=== PATIENT | male | born 1975 ===

== ENCOUNTER 2021-06-16 17:19 | Inpatient (IN) ==
[2021-06-16] MEDS ORDERED: ACETAMINOPHEN 1,000 MG/100 ML VIAL IV STA (17:30)
[2021-06-16] MEDS ORDERED: SODIUM CHLORIDE 0.9% 1000ML 1,000 ML IV ONE (17:30)
--- NOTE | 2021-06-16 17:55 | XRay Report ---
XR chest 1V portable CLINICAL HISTORY: SEPSIS COMPARISON STUDY: No previous studies for comparison. FINDINGS: Lung volumes are normal. Lungs are clear. There is no pneumothorax or pleural effusion. Car diac size is normal. Mediastinal contours are normal. There is no evidence for pulmonary edema. IMPRESSION: No acute cardiopulmonary findings. ACT 112: Negative or not required by law. Electronically signed by: Uzair Beltran M.D. 06/16/2021 5:54 PM
[2021-06-16 18:00] LABS: Eosinophils # (auto) 0.01 K/uL (0-0.5); Eosinophils % (auto) 0.2 %; Hematocrit (blood only) 42.2 % (42-52); Hemoglobin 14.2 g/dL (14.0-18.0); Immature Granulocytes # (auto) 0.01 K/uL (0.00-0.02); Immature Granulocytes % (auto) 0.2 %; Lymphocytes # (auto) 0.46 K/uL (1.2-3.4); Lymphocytes % (auto) 8.3 %; Mean Corpuscular Hemoglobin 29.2 pg (25-34); Mean Corpuscular Hgb Conc 33.6 g/dL (32-36); Mean Corpuscular Volume 86.8 fL (80-100); Mean Platelet Volume 10.3 fL (7.4-10.4); Monocytes # (auto) 0.38 K/uL (0.11-0.59); Monocytes % (auto) 6.8 %; Neutrophils # (auto) 4.71 K/uL (1.4-6.5); Neutrophils % (auto) 84.5 %; Platelet Count 160 K/uL (130-400); RDW Coefficient of Variation 12.8 % (11.5-14.5); RDW Standard Deviation 40.9 fL (36.4-46.3); Red Blood Count 4.86 M/uL (4.7-6.1); White Blood Count 5.57 K/uL (4.8-10.8)
[2021-06-16 18:10] LABS: INR 1.1 (0.9-1.1); Partial Thromboplastin Time 27.3 Seconds (21.0-31.0); Prothrombin Time 11.1 Seconds (9.0-12.0)
--- NOTE | 2021-06-16 18:26 | Emergency Department Note ---
History of Present Illness General Chief complaint: Fever Stated complaint: [id number] 101 Time Seen by Provider: 06/16/21 17:30 History of Present Illness Provider complaint: Fever Onset (ago): day(s) 2 Associated symptoms: + fever/chills and + malaise; no confusion, no chest pain, no cough, no headaches, no nausea/vomiting, no rash, no shortness of breath or no weakness 45-year-old male presents emergency department for fever. Patient reports he started having fever and chills yesterday. He reports he has been having some sinus pressure. He reports his girlfriend is a nurse practitioner and started him on Augmentin and he took his first dose of Augmentin today. Patient has been vaccine against Covid 19. The patient is not vaccinated against the flu. Patient denies any headache, chest pain, difficulty breathing, cough, abdominal pain, nausea vomiting or diarrhea. No dysuria or hematuria. Patient does make note that a few days ago him and his girlfriend saw a tick in their bed but they did not see it on themselves when they checked her scans. Home Medications Medication Instructions Recorded Confirmed Type No Known Home Medications 06/16/21 06/16/21 History Allergies Allergy/AdvReac Type Severity Reaction Status Date / Time No Known Allergies Allergy Verified 06/16/21 18:12 Past Med/Surg History Medical History (Updated 06/16/21 @ 19:46 by Manish Oleary) No pertinent family history No pertinent past medical history Surgical History (Updated 06/16/21 @ 18:25 by Manish Oleary) No pertinent past surgical history Social History Smoking Status: Never smoker Preferred Language: Maltese Feels Safe at Home: Yes Review of Systems A total of 10 systems reviewed and were otherwise negative Physical Exam Vital Signs Vital Signs - 24 hr 06/16/21 17:23 06/16/21 17:59 06/16/21 18:01 Temperature 37.9 C H Temperature Source Temporal Artery Scan Pulse Rate 125 H 117 H Pulse Rate [Apical] Pulse Rate from SpO2 Sensor Respiratory Rate 18 27 H Respiratory Effort / Characteristics Blood Pressure 103/65 113/75 Blood Pressure [Left Arm] Blood Pressure Mean 77 87 Blood Pressure Mean [Left Arm] Pulse Oximetry 95 Oxygen Delivery Method Room Air Room Air Sepsis Recent Fever Within 48 Hours Yes Sepsis New/Unexplained Change in Mental Status N/A Sepsis Action Taken by Nursing No Action Required 06/16/21 18:24 06/16/21 18:25 06/16/21 18:30 Temperature 38.8 C H Temperature Source Oral Pulse Rate 114 H 118 H Pulse Rate [Apical] 114 H Pulse Rate from SpO2 Sensor 117 H Respiratory Rate 24 17 24 Respiratory Effort / Characteristics Non-Labored Spontaneous Blood Pressure 112/68 112/63 Blood Pressure [Left Arm] 112/68 Blood Pressure Mean 82 79 Blood Pressure Mean [Left Arm] 82 Pulse Oximetry 95 97 95 Oxygen Delivery Method Room Air Room Air Room Air Sepsis Recent Fever Within 48 Hours Sepsis New/Unexplained Change in Mental Status Sepsis Action Taken by Nursing 06/16/21 19:00 06/16/21 19:30 06/16/21 20:00 Temperature Temperature Source Pulse Rate 108 H Pulse Rate [Apical] Pulse Rate from SpO2 Sensor 109 H Respiratory Rate 18 19 26 H Respiratory Effort / Characteristics Non-Labored Non-Labored Non-Labored Blood Pressure 116/72 Blood Pressure [Left Arm] Blood Pressure Mean 86 Blood Pressure Mean [Left Arm] Pulse Oximetry 96 95 97 Oxygen Delivery Method Room Air Room Air Room Air Sepsis Recent Fever Within 48 Hours Sepsis New/Unexplained Change in Mental Status Sepsis Action Taken by Nursing Physical Exam GENERAL: He is oriented to person, place, and time. He appears well-developed and well-nourished. He does not appear distressed. HENT: Exam performed. - Head: Normocephalic and atraumatic. - Right Ear: External ear normal. No mastoid tenderness. - Left Ear: External ear normal. No mastoid tenderness. - Mouth/Throat: The oropharynx is clear and moist. No trismus in the jaw. No dental abscesses or uvula swelling. No oropharyngeal exudate or tonsillar abscesses. EYES: Conjunctivae and EOM are normal. Pupils are equal, round, and reactive to light. Right eye exhibits no discharge. Left eye exhibits no discharge. No scleral icterus. NECK: Normal range of motion. Neck supple. No JVD present. No spinous process tenderness present. No carotid bruit present. No rigidity. No tracheal deviation and normal range of motion present. No Brudzinski's sign and no Kernig's sign noted. CV: Tachycardic rate, regular rhythm, normal heart sounds and intact distal pulses. There is no peripheral edema. Palpable radial pulses bue. PULM/CHEST: Effort normal and breath sounds normal. No respiratory distress. No stridor. He has no wheezes. He has no rales. - Chest Wall: He exhibits no tenderness. ABD: The abdomen is soft. Bowel sounds are normal. He has no distension. No mass is present. There is no tenderness. There is no rebound, no guarding, no Vivas's sign and no tenderness at McBurney's point. Rovsig negative. MUSC/SKEL: Normal range of motion. There is no peripheral edema, tenderness or deformity. LYMPH: No cervical adenopathy. NEURO: He is alert and oriented to person, place, and time. He has normal strength. No cranial nerve deficit or sensory deficit. Coordination and gait normal. GCS eye subscore is 4. GCS verbal subscore is 5. GCS motor subscore is 6. Cerebellar tests wnl. SKIN: Skin is warm and dry. He is not diaphoretic. PSYCH: He has a normal mood and affect. Behavior is normal. Judgment and thought content normal. Course Course 1729: The patient was evaluated in room C5. A complete history and physical exam was performed Cardiac monitoring: An order was placed for continuous cardiac monitoring. The monitor shows a rate of 110 with sinus rhythm 1943: On reassessment the patient remains sinus tachycardia. He is in no acute distress. No focal neurological deficits. No meningeal signs. No pain on palpation of the abdomen. Patient is tolerating p.o. and drinking fluids in no acute distress. Labs are within normal limits with the exception of a potassium of 3.68. EKG is within normal limits. Patient denies chest pain or difficulty breathing at this time. CTA of the chest was negative for PE. It is thought that the patient might be suffering from myocarditis given his elevated troponin, fever, and tachycardia. [facility] to [facility] the patient. Administered Medications Discontinued Medications Acetaminophen (Ofirmev) 1,000 mg in 100 mls @ 400 mls/hr IV NOW STA Stop: 06/16/21 17:44 Last Infusion: 06/16/21 18:06 Dose: 0 mls/hr Documented by: [id number] Admin: 06/16/21 17:51 Dose: 400 mls/hr Documented by: [id number] Sodium Chloride (Nss 1000ml) 1,000 mls @ 999 mls/hr IV .Q1H1M ONE Stop: 06/16/21 18:30 Last Infusion: 06/16/21 18:33 Dose: 0 mls/hr Documented by: [id number] Admin: 06/16/21 17:51 Dose: 999 mls/hr Documented by: [id number] Ioversol (Optiray 320 125ml) 119 ml IV ONCE ONE Stop: 06/16/21 19:02 Last Admin: 06/16/21 19:01 Dose: 1 ml Documented by: [id number] Medical Decision Making Laboratory Data Result diagrams: 06/16/21 17:48 06/16/21 17:48 Lab Results 06/16/21 06/16/21 06/16/21 Range/Units 17:48 17:48 17:48 WBC 5.57 (4.8-10.8) K/uL RBC 4.86 (4.7-6.1) M/uL Hgb 14.2 (14.0-18.0) g/dL Hct 42.2 (42-52) % MCV 86.8 (80-100) fL MCH 29.2 (25-34) pg MCHC 33.6 (32-36) g/dL RDW Std Deviation 40.9 (36.4-46.3) fL RDW Coeff of Jennifer 12.8 (11.5-14.5) % Plt Count 160 (130-400) K/uL MPV 10.3 (7.4-10.4) fL Immature Gran % (Auto) 0.2 % Neut % (Auto) 84.5 % Lymph % (Auto) 8.3 % Maury % (Auto) 6.8 % Eos % (Auto) 0.2 % Baso % (Auto) 0.0 % Neut # (Auto) 4.71 (1.4-6.5) K/uL Lymph # (Auto) 0.46 L (1.2-3.4) K/uL Maury # (Auto) 0.38 (0.11-0.59) K/uL Eos # (Auto) 0.01 (0-0.5) K/uL Baso # (Auto) 0.00 (0-0.2) K/uL Immature Gran # (Auto) 0.01 (0.00-0.02) K/uL PT 11.1 (9.0-12.0) Seconds INR 1.1 (0.9-1.1) APTT 27.3 (21.0-31.0) Seconds PTT Ratio 1.0 Sodium 136 (136-145) mmol/L Potassium 3.8 (3.5-5.1) mmol/L Chloride 102 (98-107) mmol/L Carbon Dioxide 30 (21-32) mmol/L Anion Gap 4.0 (3-11) BUN 18 (7-18) mg/dl Creatinine 1.23 (0.6-1.4) mg/dl Est Cr Clr Drug Dosing 80.0 ml/min Est GFR ( Amer) 82.8 ml/min Est GFR (Non-Af Amer) 71.5 ml/min BUN/Creatinine Ratio 14.8 (10-20) Glucose 114 H (70-99) mg/dl Lactate (0.4-2.0) mmol/L Calcium 9.3 (8.5-10.1) mg/dl Magnesium 2.0 (1.8-2.4) mg/dl Total Bilirubin 0.6 (0.2-1) mg/dl AST 34 (15-37) U/L ALT 28 (12-78) U/L Alkaline Phosphatase 81 (45-117) U/L Troponin I 3.680 H* (0-0.045) ng/ml Total Protein 7.9 (6.4-8.2) gm/dl Albumin 3.8 (3.4-5.0) gm/dl Globulin 4.1 H (2.5-4.0) gm/dl Albumin/Globulin Ratio 0.9 (0.9-2) Procalcitonin (0-0.5) ng/ml Anaplasma Smear See Comment Lyme Disease IgG Ab (Negative) Lyme Disease IgM Ab (Negative) COVID-19 Eval Order SARS-CoV-2 (PCR) (Negative) Influ A Molecular Assay (Negative) Influ B Molecular Assay (Negative) 06/16/21 06/16/21 06/16/21 Range/Units 17:48 17:48 18:00 WBC (4.8-10.8) K/uL RBC (4.7-6.1) M/uL Hgb (14.0-18.0) g/dL Hct (42-52) % MCV (80-100) fL MCH (25-34) pg MCHC (32-36) g/dL RDW Std Deviation (36.4-46.3) fL RDW Coeff of Jennifer (11.5-14.5) % Plt Count (130-400) K/uL MPV (7.4-10.4) fL Immature Gran % (Auto) % Neut % (Auto) % Lymph % (Auto) % Maury % (Auto) % Eos % (Auto) % Baso % (Auto) % Neut # (Auto) (1.4-6.5) K/uL Lymph # (Auto) (1.2-3.4) K/uL Maury # (Auto) (0.11-0.59) K/uL Eos # (Auto) (0-0.5) K/uL Baso # (Auto) (0-0.2) K/uL Immature Gran # (Auto) (0.00-0.02) K/uL PT (9.0-12.0) Seconds INR (0.9-1.1) APTT (21.0-31.0) Seconds PTT Ratio Sodium (136-145) mmol/L Potassium (3.5-5.1) mmol/L Chloride (98-107) mmol/L Carbon Dioxide (21-32) mmol/L Anion Gap (3-11) BUN (7-18) mg/dl Creatinine (0.6-1.4) mg/dl Est Cr Clr Drug Dosing ml/min Est GFR ( Amer) ml/min Est GFR (Non-Af Amer) ml/min BUN/Creatinine Ratio (10-20) Glucose (70-99) mg/dl Lactate 0.9 (0.4-2.0) mmol/L Calcium (8.5-10.1) mg/dl Magnesium (1.8-2.4) mg/dl Total Bilirubin (0.2-1) mg/dl AST (15-37) U/L ALT (12-78) U/L Alkaline Phosphatase (45-117) U/L Troponin I (0-0.045) ng/ml Total Protein (6.4-8.2) gm/dl Albumin (3.4-5.0) gm/dl Globulin (2.5-4.0) gm/dl Albumin/Globulin Ratio (0.9-2) Procalcitonin 0.24 (0-0.5) ng/ml Anaplasma Smear Lyme Disease IgG Ab Negative (Negative) Lyme Disease IgM Ab Negative (Negative) COVID-19 Eval Order SARS-CoV-2 (PCR) (Negative) Influ A Molecular Assay Negative (Negative) Influ B Molecular Assay Negative (Negative) 06/16/21 06/16/21 Range/Units 18:00 18:00 WBC (4.8-10.8) K/uL RBC (4.7-6.1) M/uL Hgb (14.0-18.0) g/dL Hct (42-52) % MCV (80-100) fL MCH (25-34) pg MCHC (32-36) g/dL RDW Std Deviation (36.4-46.3) fL RDW Coeff of Jennifer (11.5-14.5) % Plt Count (130-400) K/uL MPV (7.4-10.4) fL Immature Gran % (Auto) % Neut % (Auto) % Lymph % (Auto) % Maury % (Auto) % Eos % (Auto) % Baso % (Auto) % Neut # (Auto) (1.4-6.5) K/uL Lymph # (Auto) (1.2-3.4) K/uL Maury # (Auto) (0.11-0.59) K/uL Eos # (Auto) (0-0.5) K/uL Baso # (Auto) (0-0.2) K/uL Immature Gran # (Auto) (0.00-0.02) K/uL PT (9.0-12.0) Seconds INR (0.9-1.1) APTT (21.0-31.0) Seconds PTT Ratio Sodium (136-145) mmol/L Potassium (3.5-5.1) mmol/L Chloride (98-107) mmol/L Carbon Dioxide (21-32) mmol/L Anion Gap (3-11) BUN (7-18) mg/dl Creatinine (0.6-1.4) mg/dl Est Cr Clr Drug Dosing ml/min Est GFR ( Amer) ml/min Est GFR (Non-Af Amer) ml/min BUN/Creatinine Ratio (10-20) Glucose (70-99) mg/dl Lactate (0.4-2.0) mmol/L Calcium (8.5-10.1) mg/dl Magnesium (1.8-2.4) mg/dl Total Bilirubin (0.2-1) mg/dl AST (15-37) U/L ALT (12-78) U/L Alkaline Phosphatase (45-117) U/L Troponin I (0-0.045) ng/ml Total Protein (6.4-8.2) gm/dl Albumin (3.4-5.0) gm/dl Globulin (2.5-4.0) gm/dl Albumin/Globulin Ratio (0.9-2) Procalcitonin (0-0.5) ng/ml Anaplasma Smear Lyme Disease IgG Ab (Negative) Lyme Disease IgM Ab (Negative) COVID-19 Eval Order Covid19 at [facility] SARS-CoV-2 (PCR) NEGATIVE (Negative) Influ A Molecular Assay (Negative) Influ B Molecular Assay (Negative) Imaging Data Radiologist's Impression: Chest X-Ray 06/16/21 17:30 XR chest 1V portable CLINICAL HISTORY: SEPSIS COMPARISON STUDY: No previous studies for comparison. FINDINGS: Lung volumes are normal. Lungs are clear. There is no pneumothorax or pleural effusion. Cardiac size is normal. Mediastinal contours are normal. There is no evidence for pulmonary edema. IMPRESSION: No acute cardiopulmonary findings. ACT 112: Negative or not required by law. Electronically signed by: Uzair Beltran M.D. 06/16/2021 5:54 PM Chest CTA 06/16/21 18:44 CT ANGIOGRAPHY OF THE CHEST, PULMONARY EMBOLUS PROTOCOL CLINICAL HISTORY: Fever. COMPARISON STUDY: Chest radiograph June 16, 2021. TECHNIQUE: Following IV administration of 119 mL of Optiray, helical axial images of the chest were obtained utilizing the pulmonary embolus protocol. Maximal intensity projections and sagittal and coronal reformats were viewed on an independent 3D workstation. IV contrast was administered without complication. Automated exposure control was utilized for the study. A dose lowering technique was utilized adhering to the principles of ALARA. CT DOSE: 314.29 mGy.cm FINDINGS: No pulmonary emboli are identified although the segmental and subsegmental pulmonary arteries are suboptimally assessed due to respiratory motion. There is no thoracic aortic dissection. There are prominent mediastinal and bilateral hilar lymph nodes. No pneumothorax or pleural effusion is noted. Bilateral lower lobe parenchymal opacities favor atelectasis. There is no consolidation to suggest pneumonia. Central airways are patent. No acute fracture or suspicious lesion is identified within visualized portions of the bony thorax. Mild splenomegaly is partially imaged on this exam. IMPRESSION: 1. No pulmonary emboli identified although segmental and subsegmental pulmonary arteries suboptimally assessed due to respiratory motion. 2. Bilateral lower lobe ground glass opacities suggestive of atelectasis. 3. Mild splenomegaly. 4. Prominent mediastinal and bilateral hilar lymph nodes. ACT 112: Negative or not required by law. Electronically signed by: Uzair Beltran M.D. 06/16/2021 7:15 PM ECG Data Indication: + other (fever) Rate (beats per minute): 108 Rhythm: + sinus tachycardia ECG Intervals/blocks: + Normal DC and + Normal QT-c ECG ST segments: + Normal ST segments Additional Comments: QRS 72 MDM Narrative 1730: The patient was evaluated in room C5. A complete history and physical exam was performed Cardiac monitoring: An order was placed for continuous cardiac monitoring. The monitor shows a rate of 110 with sinus rhythm 1943: On reassessment the patient remains sinus tachycardia. He is in no acute distress. No focal neurological deficits. No meningeal signs. No pain on palpation of the abdomen. Patient is tolerating p.o. and drinking fluids in no acute distress. Labs are within normal limits with the exception of a potassium of 3.68. EKG is within normal limits. Patient denies chest pain or difficulty breathing at this time. CTA of the chest was negative for PE. It is thought that the patient might be suffering from myocarditis given his elevated troponin, fever, and tachycardia. [facility] to evaluate the patient. Impression & Plan Myocarditis Discharge Plan Visit Data Chief Complaint: Fever Stated Complaint: [id number]-FEVER 101 ED Provider: Manish Oleary Discharge Problem: Myocarditis Patient Disposition: Admitted As Inpatient Forms Stand Alone Forms: [facility] Prescriptions Prescriptions: No Action No Known Home Medications RF: 0 Referrals Referrals: PCP,NO [Physician] - Discharge Problem: Myocarditis Qualifiers: Myocarditis type: unspecified Chronicity: acute Qualified Code(s): I40.9 - Acute myocarditis, unspecified
[2021-06-16 18:30] LABS: Albumin Level 3.8 gm/dl (3.4-5.0); BUN Creatinine Ratio 14.8 (10-20); Calcium 9.3 mg/dl (8.5-10.1); Est GFR (African American) 82.8 ml/min; Est GFR (Non-African American) 71.5 ml/min; Potassium 3.8 mmol/L (3.5-5.1)
[2021-06-16 18:34] LABS: Influenza A virus by PCR Negative (Negative); Influenza B virus by PCR Negative (Negative)
[2021-06-16 18:38] LABS: Procalcitonin 0.24 ng/ml (0-0.5)
[2021-06-16 18:42] LABS: Albumin Globulin Ratio 0.9 (0.9-2); Bilirubin,Total 0.6 mg/dl (0.2-1); Globulin 4.1 gm/dl (2.5-4.0); Total Protein 7.9 gm/dl (6.4-8.2); Troponin I 3.68 ng/ml (0-0.045)
[2021-06-16 18:44] LABS: Lyme Ab IgG w/WB Rflx Negative (Negative); Lyme Ab IgM w/WB Rflx Negative (Negative)
[2021-06-16] MEDS ORDERED: OPTIRAY 320 125ml IV ONE (19:01)
--- NOTE | 2021-06-16 19:16 | CT Scan Report ---
CT ANGIOGRAPHY OF THE CHEST, PULMONARY EMBOLUS PROTOCOL CLINICAL HISTORY: Fever. COMPARISON STUDY: Chest radiograph June 16, 2021. TECHNIQUE: Following IV administration of 119 mL of Optiray, helical axial images of the chest were o btained utilizing the pulmonary embolus protocol. Maximal intensity projections and sagittal and cor onal reformats were viewed on an independent 3D workstation. IV contrast was administered without co mplication. Automated exposure control was utilized for the study. A dose lowering technique was ut ilized adhering to the principles of ALARA. CT DOSE: 314.29 mGy.cm FINDINGS: No pulmonary emboli are identified although the segmental and subsegmental pulmonary arter ies are suboptimally assessed due to respiratory motion. There is no thoracic aortic dissection. Ther e are prominent mediastinal and bilateral hilar lymph nodes. No pneumothorax or pleural effusion is n oted. Bilateral lower lobe parenchymal opacities favor atelectasis. There is no consolidation to sugg est pneumonia. Central airways are patent. No acute fracture or suspicious lesion is identified withi n visualized portions of the bony thorax. Mild splenomegaly is partially imaged on this exam. IMPRESSION: 1. No pulmonary emboli identified although segmental and subsegmental pulmonary arteries suboptimally assessed due to respiratory motion. 2. Bilateral lower lobe ground glass opacities suggestive of atelectasis. 3. Mild splenomegaly. 4. Prominent mediastinal and bilateral hilar lymph nodes. ACT 112: Negative or not required by law. Electronically signed by: Uzair Beltran M.D. 06/16/2021 7:15 PM
[2021-06-16] MEDS ORDERED: ASPIRIN 81 MG CHEW PO STA (21:14)
[2021-06-16] MEDS ORDERED: NITROGLYCERIN SL 0.4 MG/TAB TAB SL PRN (21:21)
[2021-06-16] MEDS ORDERED: ONDANSETRON INJ 2 MG/ML 2 ML VIAL IV PRN (21:21)
[2021-06-16] MEDS ORDERED: Heparin IV Adult Wt-Based Standard *NO* Bolus Protocol IV ONE (21:30)
[2021-06-16] MEDS ORDERED: ENOXAPARIN INJ 40 MG/0.4 ML SYR SQ SCH (21:30)
[2021-06-16] MEDS: SODIUM CHLORIDE 0.9% 1000ML 1,000 ML IV SCH (22:02)
[2021-06-16] MEDS: HEPARIN SODIUM/DEXTROSE 25,000 UNITS/500 ML BAG IV SCH (22:04)
[2021-06-16] MEDS: cefTRIAXone SODIUM 2,000 MG in DEXTROSE 5% 50 ML IV SCH (22:10)
--- NOTE | 2021-06-16 22:19 | History and Physical Report ---
DATE OF ADMISSION: 06/16/2021 CHIEF COMPLAINT: Fever and fatigue. HISTORY OF PRESENT ILLNESS: This 45-year-old male with past medical history significant for history of blood per rectum, GERD, dermatitis, arthralgia of right knee, family history of cardiac disorder in mother, presents with fever and fatigue. The patient since yesterday afternoon is having fevers and feeling fatigued and weak and nauseous. That is the reason he came here. Denies any chest pain or shortness of breath. He has some mild headache, no neck pain. No blurred visions, no earache, no runny nose, no sore throat, no cough, no difficulty swallowing. Appetite is okay. No loss of sense of smell or taste. No abdominal pain, normal bowel and bladder movements. Denies any blood in the stools or black stools. No hematuria, no burning micturition. No rash. No swelling in the legs. He says he saw tick in his bed 3 days ago. He says he walks his dogs outside and he thinks that is how the ticks might have come inside house, and he and his significant other checked in his back and his arms and legs, they could not see any tick bites. He has some lesions in the back. They thought it could be some pimple . Otherwise, currently resting comfortably and hemodynamically stable. He has finished the second dose of COVID shot about a month ago and is not exposed to any COVID patients and did not travel outside. ALLERGIES: No known drug allergies. PAST MEDICAL HISTORY: As mentioned above. PAST SURGICAL HISTORY: Dental surgery. MEDICATIONS: Currently not on any medications. FAMILY HISTORY: Significant for mother had a stroke. Mother had a stent placed, heart disease at the age of 69. Paternal grandfather had heart attack. Maternal grandfather had cancer and maternal grandmother has diabetes. SOCIAL HISTORY: Currently living with his significant other. No smoking. Alcohol rarely. No drug use. REVIEW OF SYSTEMS: As per HPI. Rest of review of systems negative. PHYSICAL EXAMINATION: GENERAL: The patient is of moderate build, not in acute distress. VITAL SIGNS: T-max 38.8, pulse 108, blood pressure 118/72, oxygen 98% on room air. HEENT: Pupils equal, round and reactive to light. Oral mucosa moist. NECK: No JVD or neck masses. CARDIOVASCULAR: S1 and S2 heard. Regular rate and rhythm. No murmur, no gallop. RESPIRATORY SYSTEM: Normal AP diameter. No accessory muscle use. No wheezing, no crackles. ABDOMEN: Soft, bowel sounds present, nontender, no distention. CENTRAL NERVOUS SYSTEM: Cranial nerves II-XII grossly intact, nonfocal. EXTREMITIES: No edema, no erythema. LABORATORY DATA: WBC 5.5, hemoglobin 14.2, hematocrit 42.2, platelets 160. PT 11.1, INR 1.1, APTT 27.3. Sodium 136, potassium 3.8, chloride 102, bicarbonate 30, BUN 18, creatinine 1.2, serum glucose 114. Lactate 0.9, calcium 9.3, magnesium 2, total bilirubin 0.6, AST 34, ALT 28, alkaline phosphatase 81. Troponin I of 3.6. Procalcitonin 0.24. Lyme disease initial IgG, IgA, IgM are negative. Anaplasmosis smear negative. SARS-CoV-2 PCR negative. Influenza A and B PCR negative. IMAGING: Chest x-ray: No acute cardiopulmonary findings. CTA of the chest: No PE. Bilateral lower lobe ground-glass opacities suggestive of atelectasis, mild splenomegaly, prominent mediastinal and bilateral hilar lymph nodes. EKG: Sinus tachycardia with rate of 108, some nonspecific T-wave abnormalities. No previous ECGs available. ASSESSMENT AND PLAN: This 45-year-old male presents with fever and fatigue of unknown etiology. 1. Fever and fatigue, unclear etiology. Laboratories are okay except for lymphopenia and rest of the laboratories are all fine. The patient is SARS-CoV-2 PCR negative. The patient had a second dose of vaccination about 1 month ago. No exposure to COVID. CT of the chest unremarkable except for possible atelectasis.Possibility could be the Lyme disease or anaplasmosis as recently seeing ticks in his bed about 3 days ago, although his Lyme screen is negative, may take some time to show positive on the laboratories. We will empirically start on Rocephin and doxycycline, fluids and follow the response and monitor in the hospital. 2. Non-ST elevated myocardial infarction, troponin of 3.6. EKG with nonspecific changes,. Discussed with cardiology and appreciate inputs.. Will give aspirin and start on heparin. Will Check for CK and CK-MB , will get an echocardiogram in the a.m. We will keep him n.p.o. after midnight. Lipid profile in the a.m. Cardiology consult, closely monitor. We will also check a drug screen and ESR and CRP levels. 3. Deep venous thrombosis prophylaxis, on IV heparin. DISPOSITION: Closely monitor in the tele floor. Level 1 full code. Expect to discharge home and follow with family doctor. Job ID: [id number] DIMITRIOS
[2021-06-16 22:29] LABS: Appearance Urine Clear (Clear); Bilirubin Urine Negative (Negative); Blood Urine Negative (Negative); Color Urine Dark Yellow; Glucose Urine UA Negative (Negative); Ketones Urine 1+ (Negative); Leukocyte Esterase Urine Negative (Negative); Nitrite Urine Negative (Negative); Protein Urine Negative (Negative); Specific Gravity Urine > 1.045 (1.000-1.030); Urobilinogen Urine Positive (Negative)
[2021-06-16] MEDS: DOXYCYCLINE HYCLATE 100 MG in DEXTROSE 5% 100 ML IV SCH (22:47)
[2021-06-16] MEDS: ACETAMINOPHEN 325 MG TAB PO PRN (23:11)
[2021-06-16 23:14] LABS: Amphetamines+Metham, Urine Neg (Neg); Barbiturates, Urine Neg (Neg); Benzodiazepine, Urine Neg (Neg); Cocaine, Urine Neg (Neg); MDMA (Ecstacy), Urine Pos (Neg); Methadone, Urine Neg (Neg); Opiate, Urine Neg (Neg); Phencyclidine, Urine Neg (Neg)
[2021-06-16 23:44] LABS: C Reactive Protein 14.5 mg/dl (0-0.29); Creatine Kinase MB 2.7 ng/ml (0.5-3.6); Magnesium 1.8 mg/dl (1.8-2.4); Troponin I 3.2 ng/ml (0-0.045)
[2021-06-17 04:16] LABS: Eosinophils # (auto) 0.01 K/uL (0-0.5); Eosinophils % (auto) 0.2 %; Hematocrit (blood only) 40.9 % (42-52); Hemoglobin 13.6 g/dL (14.0-18.0); Immature Granulocytes # (auto) 0.01 K/uL (0.00-0.02); Immature Granulocytes % (auto) 0.2 %; Lymphocytes # (auto) 0.68 K/uL (1.2-3.4); Lymphocytes % (auto) 15.7 %; Mean Corpuscular Hemoglobin 29.3 pg (25-34); Mean Corpuscular Hgb Conc 33.3 g/dL (32-36); Mean Corpuscular Volume 88.1 fL (80-100); Mean Platelet Volume 10.4 fL (7.4-10.4); Monocytes # (auto) 0.39 K/uL (0.11-0.59); Neutrophils # (auto) 3.24 K/uL (1.4-6.5); Neutrophils % (auto) 74.9 %; Platelet Count 129 K/uL (130-400); RDW Standard Deviation 42.2 fL (36.4-46.3); Red Blood Count 4.64 M/uL (4.7-6.1); White Blood Count 4.33 K/uL (4.8-10.8)
[2021-06-17 04:32] LABS: BUN Creatinine Ratio 14.7 (10-20); Calcium 8.6 mg/dl (8.5-10.1); Creatinine Clr Calc Pharmacy 102.4 ml/min; Est GFR (African American) 111.8 ml/min; Est GFR (Non-African American) 96.4 ml/min; Potassium 3.7 mmol/L (3.5-5.1)
[2021-06-17 04:40] LABS: Partial Thromboplastin Time 51.9 Seconds (21.0-31.0)
[2021-06-17 04:41] LABS: Creatine Kinase MB 5.5 ng/ml (0.5-3.6); Troponin I 3.09 ng/ml (0-0.045)
[2021-06-17] MEDS ORDERED: POTASSIUM CHLORIDE CRTAB 20 MEQ TABCR PO STA (07:04)
[2021-06-17] MEDS: ASPIRIN 81 MG ECTAB PO SCH (08:05)
[2021-06-17] MEDS: DOXYCYCLINE HYCLATE 100 MG in DEXTROSE 5% 100 ML IV SCH ×2 (08:08→19:59)
[2021-06-17] MEDS: SODIUM CHLORIDE 0.9% 1000ML 1,000 ML IV SCH ×2 (09:29→17:54)
[2021-06-17 11:43] LABS: Thyroid Stimulating Hormone 2.03 uIu/ml (0.300-4.500); Troponin I 1.56 ng/ml (0-0.045)
--- NOTE | 2021-06-17 11:49 | Electrocardiogram Report ---
Test Reason : Blood Pressure : / mmHG Vent. Rate : 108 BPM Atrial Rate : 108 BPM P-R Int : 124 ms QRS Dur : 072 ms QT Int : 286 ms P-R-T Axes : 054 056 -06 degrees QTc Int : 383 ms Sinus tachycardia Nonspecific ST and T wave abnormality consider inferolateral ischemia Abnormal ECG No previous ECGs available Confirmed by Wesley Solomon ([id number]) on 06/17/2021 11:48:59 AM Referred By: REFERRED SELF Confirmed By:Wesley Solomon
--- NOTE | 2021-06-17 11:55 | Electrocardiogram Report ---
Test Reason : Blood Pressure : / mmHG Vent. Rate : 073 BPM Atrial Rate : 073 BPM P-R Int : 142 ms QRS Dur : 090 ms QT Int : 374 ms P-R-T Axes : 049 030 009 degrees QTc Int : 412 ms Normal sinus rhythm Nonspecific ST and T wave abnormality Abnormal ECG When compared with ECG of 16-JUN-2021 17:59, (unconfirmed) ST no longer depressed in Lateral leads Confirmed by Wesley Solomon ([id number]) on 06/17/2021 11:55:02 AM Referred By: REFERRED SELF Confirmed By:Wesley Solomon
--- NOTE | 2021-06-17 12:44 | Cardiology Consultation ---
Date of Consultation June 17, 2021 Assessment & Plan (1) Elevated troponin level: 44-year-old patient presenting with elevated troponin and clinical scenario suggestive of myocarditis, however, with ischemic ECG changes noted on admission and posterior wall motion abnormality on resting 2D transthoracic echocardiogram. His ejection fraction is preserved. No dysrhythmias on telemetry or evidence of decompensated heart failure. Discussed risk versus benefit of cardiac catheterization to define coronary anatomy and exclude presence of obstructive CAD. Patient agreeable. ECG this morning with improvement of ST depression. Fevers have subsided. Continue empiric medical therapy with aspirin, and intravenous heparin. Platelet count trended downward to 129, will repeat this afternoon and discontinue heparin if platelet count continues to drop. If coronary angiography demonstrates normal coronary anatomy, continue with supportive care for myocarditis and ultimately refer for cardiac MRI. Possible recent tick exposure, however, anaplasmosis and Lyme screen negative. May be too early for markers to return positive. Agree with empiric antibiotic therapy as patient has clinically improved. CBC unremarkable on admission except for lymphopenia. History of Present Illness Reason for Consultation: Elevated troponin Requesting Physician: Dr. Zapien Attending Physician: Cedric Chang MD History of Present Illness 45-year-old patient presented emergency department with persistent fevers for more than 48 hours. In the ER he was noted to have an elevated troponin of 3.68. Notes issues with nausea, acid reflux and heartburn over the preceding 48 hours. Denies chest pain, heaviness, or tightness. No shortness of breath. Denies any vomiting, diarrhea, or constipation. Fevers persisted despite treatment with ibuprofen and Tylenol. He was treated with Rocephin and doxycycline on admission. ECG on presentation with lateral ST depression. Preliminary review of bedside 2D transthoracic echocardiogram demonstrating a posterior wall motion abnormality, otherwise preserved LV systolic function, no significant valvular disease. Patient seen and examined the bedside. Feeling better this AM. No recurrent fevers since 3 AM. Received dose of antibiotic today. Tylenol administered overnight. Telemetry demonstrating sinus rhythm and sinus tachycardia. No dysrhythmias. No orthopnea, PND, or edema. Denies lightheadedness, dizziness, syncope, or near syncope. Aware of his elevated heart rate overnight however the symptoms have nearly resolved. Denies personal history of coronary disease, congestive heart failure, rheumatic fever as a child, or diabetes. He does not use any [id number] medications regularly. 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 Beliefs That Will Affect Care: None Current Living Situation: Significant Other Feels Safe at Home: Yes Safety Concerns: Feels Safe At This Time Assistive Devices: None Review of Systems Review of Systems: All systems reviewed & are unremarkable except as noted in Subjective Physical Exam Constitutional: well developed, well nourished and + ill appearing; no acute distress Respiratory: no respiratory distress and no labored breathing Auscultation: lungs clear to auscultation bilaterally; no crackles, no rales, no rhonchi and no wheezes Cardiovascular: Rate/Rhythm: regular rate and regular rhythm Heart Sounds: normal S1 and normal S2 Palpation: normal PMI Gastrointestinal (Abdomen): Inspection/Auscultation: normal bowel sounds; abdomen not distended Percussion/Palpation: abdomen soft; abdomen nontender, no guarding and abdomen not rigid Neurologic: CN's II-XI intact bilaterally and moves all extremities; no focal motor deficits Psychiatric: A+Ox3, euthymic affect Results & Data ([facility]) Vital Signs (Past 12 Hours) Vital Signs Temp Pulse Pulse Resp BP Pulse Ox 06/17/21 11:00 37.0 C 69 16 110/59 L 95 06/17/21 07:17 72 06/17/21 07:00 37.0 C 67 18 108/60 96 06/17/21 03:54 36.6 C 78 20 94/62 L 98
[2021-06-17] MEDS: METOPROLOL TARTRATE 25 MG TAB PO SCH ×2 (13:35→19:59)
--- NOTE | 2021-06-17 14:58 | Hospitalist Progress Note ---
Date of Service June 17, 2021 Assessment & Plan (1) Elevated troponin level: Plan: This 45-year-old male presents with fever and fatigue of unknown etiology. 1. Fever and fatigue, unclear etiology. Laboratories are unremarkable except for lymphopenia The patient is SARS-CoV-2 PCR negative. The patient had a second dose of vaccination about 1 month ago. No exposure to COVID. CT of the chest unremarkable except for possible atelectasis. Possibility could be the Lyme disease or anaplasmosis as recently seeing ticks in his bed about 3 days ago, although his Lyme screen is negative, may take some time to show positive on the laboratories. We will empirically start on Rocephin and doxycycline, fluids and follow the response and monitor in the hospital. Urine drug screen positive for ecstasy, likely from the use of Sudafed prior to coming to the hospital (for congestion) 2. NSTEMI, troponin of 3.6. EKG with ischemic changes on admission. Cardiology consulted and appreciate their inputs. Pt received aspirin and started on heparin on admission. Will Check for CK and CK-MB Echocardiogram obtained - EF 60-65%. There is a small sized posterior wall motion abnormality with hypokinesis of the segments. There is mild tricuspid regurg, there is no pericardial effusion. Given ischemic changes on ECG and posterior wall motion abnormality on resting echo - Plan for cardiac cath tomorrow (06/18) in the a.m. We will keep him n.p.o. after midnight. Lipid profile in the a.m. Cardiology consult, closely monitor. We will also check a drug screen and ESR and CRP levels. DVT prophylaxis, on IV heparin. DISPOSITION: Plan to DC home once medically stable and follow-up with PCP and cardiology. Full code Admission and Anticipated Discharge Date Admission Date: June 16, 2021 Subjective Patient seen in follow-up fevers, malaise, elevated troponin Currently laying in bed, in no acute distress, reports he is already feeling better Seen by cardiology, plan for cardiac cath tomorrow Patient's fianc at the bedside and updated Currently denies any chest pain, shortness of breath, no more fevers, no rashes no lower extremity edema Review of Systems Constitutional: no fever and no chills Respiratory: no cough and no dyspnea Cardiovascular: no chest pain and no palpitations Gastrointestinal: no abdominal pain, no nausea and no vomiting Physical Exam Physical Exam: GENERAL: The patient is of moderate build, not in acute dist ress. HEENT: NC/AT, EOMI, Pupils equal, round and reactive to light. Oral mucosa moist. NECK: No JVD or neck masses. CARDIOVASCULAR: S1 and S2 heard. Regular rate and rhythm. No murmur, no bryant p. RESPIRATORY SYSTEM: Normal AP diameter. No accessory muscle use. No wheezing, no crackles. ABDOMEN: Soft, bowel sounds present, nontender, no distention. NEURO: Alert and oriented x3, no facial asymmetry, speech fluent, moves extremities spontaneously EXTREMITIES: No edema, no erythema. Results & Data Results & Data ([facility]) Vital Signs (Past 12 Hours) Vital Signs Temp Pulse Pulse Resp BP Pulse Ox 06/17/21 13:35 99/65 L 06/17/21 11:00 37.0 C 69 16 110/59 L 95 06/17/21 07:17 72 06/17/21 07:00 37.0 C 67 18 108/60 96 06/17/21 03:54 36.6 C 78 20 94/62 L 98 Laboratory Results 06/17/21 06/17/21 06/17/21 Range/Units 11:04 04:01 04:01 WBC (4.8-10.8) K/uL RBC (4.7-6.1) M/uL Hgb (14.0-18.0) g/dL Hct (42-52) % MCV (80-100) fL MCH (25-34) pg MCHC (32-36) g/dL RDW Std Deviation (36.4-46.3) fL RDW Coeff of Jennifer (11.5-14.5) % Plt Count (130-400) K/uL MPV (7.4-10.4) fL Immature Gran % (Auto) % Neut % (Auto) % Lymph % (Auto) % Davis % (Auto) % Eos % (Auto) % Baso % (Auto) % Neut # (Auto) (1.4-6.5) K/uL Lymph # (Auto) (1.2-3.4) K/uL Davis # (Auto) (0.11-0.59) K/uL Eos # (Auto) (0-0.5) K/uL Baso # (Auto) (0-0.2) K/uL Immature Gran # (Auto) (0.00-0.02) K/uL ESR (0-15) mm/hr PT (9.0-12.0) Seconds INR (0.9-1.1) APTT 51.9 H* (21.0-31.0) Seconds PTT Ratio 2.0 Sodium 137 (136-145) mmol/L Potassium 3.7 (3.5-5.1) mmol/L Chloride 106 (98-107) mmol/L Carbon Dioxide 27 (21-32) mmol/L Anion Gap 4.0 (3-11) BUN 14 (7-18) mg/dl Creatinine 0.96 (0.6-1.4) mg/dl Est Cr Clr Drug Dosing 102.4 ml/min Est GFR ( Amer) 111.8 ml/min Est GFR (Non-Af Amer) 96.4 ml/min BUN/Creatinine Ratio 14.7 (10-20) Glucose 116 H (70-99) mg/dl Lactate (0.4-2.0) mmol/L Calcium 8.6 (8.5-10.1) mg/dl Magnesium (1.8-2.4) mg/dl Total Bilirubin (0.2-1) mg/dl AST (15-37) U/L ALT (12-78) U/L Alkaline Phosphatase (45-117) U/L Total Creatine Kinase 189 (39-308) U/L CK-MB (CK-2) 5.5 H (0.5-3.6) ng/ml CK/CKMB % Calc 2.9 (0-3.0) Troponin I 1.560 H* 3.090 H* (0-0.045) ng/ml C-Reactive Protein (0-0.29) mg/dl Total Protein (6.4-8.2) gm/dl Albumin (3.4-5.0) gm/dl Globulin (2.5-4.0) gm/dl Albumin/Globulin Ratio (0.9-2) Procalcitonin (0-0.5) ng/ml TSH 2.030 (0.300-4.500) uIu/ml Urine Color Urine Appearance (Clear) Urine pH (4.5-7.5) Ur Specific [place] (1.000-1.030) Urine Protein (Negative) Urine Glucose (UA) (Negative) Urine Ketones (Negative) Urine Blood (Negative) Urine Nitrite (Negative) Urine Bilirubin (Negative) Urine Urobilinogen (Negative) Ur Leukocyte Esterase (Negative) Urine Opiates Screen (Neg) Ur Methadone, Qual (Neg) Urine Barbiturates (Neg) Ur Phencyclidine (PCP) (Neg) U Amphetamin/Meth Scrn (Neg) Urine MDEA MDMA (Ecstasy) Screen (Neg) MDMA Urine MDMA U Benzodiazepines Scrn (Neg) Ur Cocaine Metabolite (Neg) U Marijuana (THC) Screen (Neg) Anaplasma Smear A. phagocytophilum DNA Lyme Disease IgG Ab (Negative) Lyme Disease IgM Ab (Negative) COVID-19 Eval Order SARS-CoV-2 (PCR) (Negative) Influ A Molecular Assay (Negative) Influ B Molecular Assay (Negative) 06/17/21 06/16/21 06/16/21 Range/Units 04:01 23:02 23:02 WBC 4.33 L (4.8-10.8) K/uL RBC 4.64 L (4.7-6.1) M/uL Hgb 13.6 L (14.0-18.0) g/dL Hct 40.9 L (42-52) % MCV 88.1 (80-100) fL MCH 29.3 (25-34) pg MCHC 33.3 (32-36) g/dL RDW Std Deviation 42.2 (36.4-46.3) fL RDW Coeff of Jennifer 13.0 (11.5-14.5) % Plt Count 129 L (130-400) K/uL MPV 10.4 (7.4-10.4) fL Immature Gran % (Auto) 0.2 % Neut % (Auto) 74.9 % Lymph % (Auto) 15.7 % Davis % (Auto) 9.0 % Eos % (Auto) 0.2 % Baso % (Auto) 0.0 % Neut # (Auto) 3.24 (1.4-6.5) K/uL Lymph # (Auto) 0.68 L (1.2-3.4) K/uL Davis # (Auto) 0.39 (0.11-0.59) K/uL Eos # (Auto) 0.01 (0-0.5) K/uL Baso # (Auto) 0.00 (0-0.2) K/uL Immature Gran # (Auto) 0.01 (0.00-0.02) K/uL ESR 37 H (0-15) mm/hr PT (9.0-12.0) Seconds INR (0.9-1.1) APTT (21.0-31.0) Seconds PTT Ratio Sodium (136-145) mmol/L Potassium (3.5-5.1) mmol/L Chloride (98-107) mmol/L Carbon Dioxide (21-32) mmol/L Anion Gap (3-11) BUN (7-18) mg/dl Creatinine (0.6-1.4) mg/dl Est Cr Clr Drug Dosing ml/min Est GFR ( Amer) ml/min Est GFR (Non-Af Amer) ml/min BUN/Creatinine Ratio (10-20) Glucose (70-99) mg/dl Lactate (0.4-2.0) mmol/L Calcium (8.5-10.1) mg/dl Magnesium 1.8 (1.8-2.4) mg/dl Total Bilirubin (0.2-1) mg/dl AST (15-37) U/L ALT (12-78) U/L Alkaline Phosphatase (45-117) U/L Total Creatine Kinase 185 (39-308) U/L CK-MB (CK-2) 2.7 (0.5-3.6) ng/ml CK/CKMB % Calc 1.5 (0-3.0) Troponin I 3.200 H* (0-0.045) ng/ml C-Reactive Protein 14.50 H (0-0.29) mg/dl Total Protein (6.4-8.2) gm/dl Albumin (3.4-5.0) gm/dl Globulin (2.5-4.0) gm/dl Albumin/Globulin Ratio (0.9-2) Procalcitonin (0-0.5) ng/ml TSH (0.300-4.500) uIu/ml Urine Color Urine Appearance (Clear) Urine pH (4.5-7.5) Ur Specific [place] (1.000-1.030) Urine Protein (Negative) Urine Glucose (UA) (Negative) Urine Ketones (Negative) Urine Blood (Negative) Urine Nitrite (Negative) Urine Bilirubin (Negative) Urine Urobilinogen (Negative) Ur Leukocyte Esterase (Negative) Urine Opiates Screen (Neg) Ur Methadone, Qual (Neg) Urine Barbiturates (Neg) Ur Phencyclidine (PCP) (Neg) U Amphetamin/Meth Scrn (Neg) Urine MDEA MDMA (Ecstasy) Screen (Neg) MDMA Urine MDMA U Benzodiazepines Scrn (Neg) Ur Cocaine Metabolite (Neg) U Marijuana (THC) Screen (Neg) Anaplasma Smear A. phagocytophilum DNA Lyme Disease IgG Ab (Negative) Lyme Disease IgM Ab (Negative) COVID-19 Eval Order SARS-CoV-2 (PCR) (Negative) Influ A Molecular Assay (Negative) Influ B Molecular Assay (Negative) 06/16/21 06/16/21 06/16/21 Range/Units 22:15 22:15 22:15 WBC (4.8-10.8) K/uL RBC (4.7-6.1) M/uL Hgb (14.0-18.0) g/dL Hct (42-52) % MCV (80-100) fL MCH (25-34) pg MCHC (32-36) g/dL RDW Std Deviation (36.4-46.3) fL RDW Coeff of Jennifer (11.5-14.5) % Plt Count (130-400) K/uL MPV (7.4-10.4) fL Immature Gran % (Auto) % Neut % (Auto) % Lymph % (Auto) % Davis % (Auto) % Eos % (Auto) % Baso % (Auto) % Neut # (Auto) (1.4-6.5) K/uL Lymph # (Auto) (1.2-3.4) K/uL Davis # (Auto) (0.11-0.59) K/uL Eos # (Auto) (0-0.5) K/uL Baso # (Auto) (0-0.2) K/uL Immature Gran # (Auto) (0.00-0.02) K/uL ESR (0-15) mm/hr PT (9.0-12.0) Seconds INR (0.9-1.1) APTT (21.0-31.0) Seconds PTT Ratio Sodium (136-145) mmol/L Potassium (3.5-5.1) mmol/L Chloride (98-107) mmol/L Carbon Dioxide (21-32) mmol/L Anion Gap (3-11) BUN (7-18) mg/dl Creatinine (0.6-1.4) mg/dl Est Cr Clr Drug Dosing ml/min Est GFR ( Amer) ml/min Est GFR (Non-Af Amer) ml/min BUN/Creatinine Ratio (10-20) Glucose (70-99) mg/dl Lactate (0.4-2.0) mmol/L Calcium (8.5-10.1) mg/dl Magnesium (1.8-2.4) mg/dl Total Bilirubin (0.2-1) mg/dl AST (15-37) U/L ALT (12-78) U/L Alkaline Phosphatase (45-117) U/L Total Creatine Kinase (39-308) U/L CK-MB (CK-2) (0.5-3.6) ng/ml CK/CKMB % Calc (0-3.0) Troponin I (0-0.045) ng/ml C-Reactive Protein (0-0.29) mg/dl Total Protein (6.4-8.2) gm/dl Albumin (3.4-5.0) gm/dl Globulin (2.5-4.0) gm/dl Albumin/Globulin Ratio (0.9-2) Procalcitonin (0-0.5) ng/ml TSH (0.300-4.500) uIu/ml Urine Color Dark Yellow Urine Appearance Clear (Clear) Urine pH 6.0 (4.5-7.5) Ur Specific [place] > 1.045 H (1.000-1.030) Urine Protein Negative (Negative) Urine Glucose (UA) Negative (Negative) Urine Ketones 1+ H (Negative) Urine Blood Negative (Negative) Urine Nitrite Negative (Negative) Urine Bilirubin Negative (Negative) Urine Urobilinogen Positive H (Negative) Ur Leukocyte Esterase Negative (Negative) Urine Opiates Screen Neg (Neg) Ur Methadone, Qual Neg (Neg) Urine Barbiturates Neg (Neg) Ur Phencyclidine (PCP) Neg (Neg) U Amphetamin/Meth Scrn Neg (Neg) Urine MDEA Pending MDMA (Ecstasy) Screen Pos H (Neg) MDMA Pending Urine MDMA Pending U Benzodiazepines Scrn Neg (Neg) Ur Cocaine Metabolite Neg (Neg) U Marijuana (THC) Screen Neg (Neg) Anaplasma Smear A. phagocytophilum DNA Lyme Disease IgG Ab (Negative) Lyme Disease IgM Ab (Negative) COVID-19 Eval Order SARS-CoV-2 (PCR) (Negative) Influ A Molecular Assay (Negative) Influ B Molecular Assay (Negative) 06/16/21 06/16/21 06/16/21 Range/Units 18:00 18:00 18:00 WBC (4.8-10.8) K/uL RBC (4.7-6.1) M/uL Hgb (14.0-18.0) g/dL Hct (42-52) % MCV (80-100) fL MCH (25-34) pg MCHC (32-36) g/dL RDW Std Deviation (36.4-46.3) fL RDW Coeff of Jennifer (11.5-14.5) % Plt Count (130-400) K/uL MPV (7.4-10.4) fL Immature Gran % (Auto) % Neut % (Auto) % Lymph % (Auto) % Davis % (Auto) % Eos % (Auto) % Baso % (Auto) % Neut # (Auto) (1.4-6.5) K/uL Lymph # (Auto) (1.2-3.4) K/uL Davis # (Auto) (0.11-0.59) K/uL Eos # (Auto) (0-0.5) K/uL Baso # (Auto) (0-0.2) K/uL Immature Gran # (Auto) (0.00-0.02) K/uL ESR (0-15) mm/hr PT (9.0-12.0) Seconds INR (0.9-1.1) APTT (21.0-31.0) Seconds PTT Ratio Sodium (136-145) mmol/L Potassium (3.5-5.1) mmol/L Chloride (98-107) mmol/L Carbon Dioxide (21-32) mmol/L Anion Gap (3-11) BUN (7-18) mg/dl Creatinine (0.6-1.4) mg/dl Est Cr Clr Drug Dosing ml/min Est GFR ( Amer) ml/min Est GFR (Non-Af Amer) ml/min BUN/Creatinine Ratio (10-20) Glucose (70-99) mg/dl Lactate (0.4-2.0) mmol/L Calcium (8.5-10.1) mg/dl Magnesium (1.8-2.4) mg/dl Total Bilirubin (0.2-1) mg/dl AST (15-37) U/L ALT (12-78) U/L Alkaline Phosphatase (45-117) U/L Total Creatine Kinase (39-308) U/L CK-MB (CK-2) (0.5-3.6) ng/ml CK/CKMB % Calc (0-3.0) Troponin I (0-0.045) ng/ml C-Reactive Protein (0-0.29) mg/dl Total Protein (6.4-8.2) gm/dl Albumin (3.4-5.0) gm/dl Globulin (2.5-4.0) gm/dl Albumin/Globulin Ratio (0.9-2) Procalcitonin (0-0.5) ng/ml TSH (0.300-4.500) uIu/ml Urine Color Urine Appearance (Clear) Urine pH (4.5-7.5) Ur Specific [place] (1.000-1.030) Urine Protein (Negative) Urine Glucose (UA) (Negative) Urine Ketones (Negative) Urine Blood (Negative) Urine Nitrite (Negative) Urine Bilirubin (Negative) Urine Urobilinogen (Negative) Ur Leukocyte Esterase (Negative) Urine Opiates Screen (Neg) Ur Methadone, Qual (Neg) Urine Barbiturates (Neg) Ur Phencyclidine (PCP) (Neg) U Amphetamin/Meth Scrn (Neg) Urine MDEA MDMA (Ecstasy) Screen (Neg) MDMA Urine MDMA U Benzodiazepines Scrn (Neg) Ur Cocaine Metabolite (Neg) U Marijuana (THC) Screen (Neg) Anaplasma Smear A. phagocytophilum DNA Lyme Disease IgG Ab (Negative) Lyme Disease IgM Ab (Negative) COVID-19 Eval Order Covid19 at [facility] SARS-CoV-2 (PCR) NEGATIVE (Negative) Influ A Molecular Assay Negative (Negative) Influ B Molecular Assay Negative (Negative) 06/16/21 06/16/21 06/16/21 Range/Units 17:48 17:48 17:48 WBC (4.8-10.8) K/uL RBC (4.7-6.1) M/uL Hgb (14.0-18.0) g/dL Hct (42-52) % MCV (80-100) fL MCH (25-34) pg MCHC (32-36) g/dL RDW Std Deviation (36.4-46.3) fL RDW Coeff of Jennifer (11.5-14.5) % Plt Count (130-400) K/uL MPV (7.4-10.4) fL Immature Gran % (Auto) % Neut % (Auto) % Lymph % (Auto) % Davis % (Auto) % Eos % (Auto) % Baso % (Auto) % Neut # (Auto) (1.4-6.5) K/uL Lymph # (Auto) (1.2-3.4) K/uL Davis # (Auto) (0.11-0.59) K/uL Eos # (Auto) (0-0.5) K/uL Baso # (Auto) (0-0.2) K/uL Immature Gran # (Auto) (0.00-0.02) K/uL ESR (0-15) mm/hr PT (9.0-12.0) Seconds INR (0.9-1.1) APTT (21.0-31.0) Seconds PTT Ratio Sodium (136-145) mmol/L Potassium (3.5-5.1) mmol/L Chloride (98-107) mmol/L Carbon Dioxide (21-32) mmol/L Anion Gap (3-11) BUN (7-18) mg/dl Creatinine (0.6-1.4) mg/dl Est Cr Clr Drug Dosing ml/min Est GFR ( Amer) ml/min Est GFR (Non-Af Amer) ml/min BUN/Creatinine Ratio (10-20) Glucose (70-99) mg/dl Lactate 0.9 (0.4-2.0) mmol/L Calcium (8.5-10.1) mg/dl Magnesium (1.8-2.4) mg/dl Total Bilirubin (0.2-1) mg/dl AST (15-37) U/L ALT (12-78) U/L Alkaline Phosphatase (45-117) U/L Total Creatine Kinase (39-308) U/L CK-MB (CK-2) (0.5-3.6) ng/ml CK/CKMB % Calc (0-3.0) Troponin I (0-0.045) ng/ml C-Reactive Protein (0-0.29) mg/dl Total Protein (6.4-8.2) gm/dl Albumin (3.4-5.0) gm/dl Globulin (2.5-4.0) gm/dl Albumin/Globulin Ratio (0.9-2) Procalcitonin 0.24 (0-0.5) ng/ml TSH (0.300-4.500) uIu/ml Urine Color Urine Appearance (Clear) Urine pH (4.5-7.5) Ur Specific [place] (1.000-1.030) Urine Protein (Negative) Urine Glucose (UA) (Negative) Urine Ketones (Negative) Urine Blood (Negative) Urine Nitrite (Negative) Urine Bilirubin (Negative) Urine Urobilinogen (Negative) Ur Leukocyte Esterase (Negative) Urine Opiates Screen (Neg) Ur Methadone, Qual (Neg) Urine Barbiturates (Neg) Ur Phencyclidine (PCP) (Neg) U Amphetamin/Meth Scrn (Neg) Urine MDEA MDMA (Ecstasy) Screen (Neg) MDMA Urine MDMA U Benzodiazepines Scrn (Neg) Ur Cocaine Metabolite (Neg) U Marijuana (THC) Screen (Neg) Anaplasma Smear A. phagocytophilum DNA Pending Lyme Disease IgG Ab Negative (Negative) Lyme Disease IgM Ab Negative (Negative) COVID-19 Eval Order SARS-CoV-2 (PCR) (Negative) Influ A Molecular Assay (Negative) Influ B Molecular Assay (Negative) 06/16/21 06/16/21 06/16/21 Range/Units 17:48 17:48 17:48 WBC 5.57 (4.8-10.8) K/uL RBC 4.86 (4.7-6.1) M/uL Hgb 14.2 (14.0-18.0) g/dL Hct 42.2 (42-52) % MCV 86.8 (80-100) fL MCH 29.2 (25-34) pg MCHC 33.6 (32-36) g/dL RDW Std Deviation 40.9 (36.4-46.3) fL RDW Coeff of Jennifer 12.8 (11.5-14.5) % Plt Count 160 (130-400) K/uL MPV 10.3 (7.4-10.4) fL Immature Gran % (Auto) 0.2 % Neut % (Auto) 84.5 % Lymph % (Auto) 8.3 % Davis % (Auto) 6.8 % Eos % (Auto) 0.2 % Baso % (Auto) 0.0 % Neut # (Auto) 4.71 (1.4-6.5) K/uL Lymph # (Auto) 0.46 L (1.2-3.4) K/uL Davis # (Auto) 0.38 (0.11-0.59) K/uL Eos # (Auto) 0.01 (0-0.5) K/uL Baso # (Auto) 0.00 (0-0.2) K/uL Immature Gran # (Auto) 0.01 (0.00-0.02) K/uL ESR (0-15) mm/hr PT 11.1 (9.0-12.0) Seconds INR 1.1 (0.9-1.1) APTT 27.3 (21.0-31.0) Seconds PTT Ratio 1.0 Sodium 136 (136-145) mmol/L Potassium 3.8 (3.5-5.1) mmol/L Chloride 102 (98-107) mmol/L Carbon Dioxide 30 (21-32) mmol/L Anion Gap 4.0 (3-11) BUN 18 (7-18) mg/dl Creatinine 1.23 (0.6-1.4) mg/dl Est Cr Clr Drug Dosing 80.0 ml/min Est GFR ( Amer) 82.8 ml/min Est GFR (Non-Af Amer) 71.5 ml/min BUN/Creatinine Ratio 14.8 (10-20) Glucose 114 H (70-99) mg/dl Lactate (0.4-2.0) mmol/L Calcium 9.3 (8.5-10.1) mg/dl Magnesium 2.0 (1.8-2.4) mg/dl Total Bilirubin 0.6 (0.2-1) mg/dl AST 34 (15-37) U/L ALT 28 (12-78) U/L Alkaline Phosphatase 81 (45-117) U/L Total Creatine Kinase (39-308) U/L CK-MB (CK-2) (0.5-3.6) ng/ml CK/CKMB % Calc (0-3.0) Troponin I 3.680 H* (0-0.045) ng/ml C-Reactive Protein (0-0.29) mg/dl Total Protein 7.9 (6.4-8.2) gm/dl Albumin 3.8 (3.4-5.0) gm/dl Globulin 4.1 H (2.5-4.0) gm/dl Albumin/Globulin Ratio 0.9 (0.9-2) Procalcitonin (0-0.5) ng/ml TSH (0.300-4.500) uIu/ml Urine Color Urine Appearance (Clear) Urine pH (4.5-7.5) Ur Specific [place] (1.000-1.030) Urine Protein (Negative) Urine Glucose (UA) (Negative) Urine Ketones (Negative) Urine Blood (Negative) Urine Nitrite (Negative) Urine Bilirubin (Negative) Urine Urobilinogen (Negative) Ur Leukocyte Esterase (Negative) Urine Opiates Screen (Neg) Ur Methadone, Qual (Neg) Urine Barbiturates (Neg) Ur Phencyclidine (PCP) (Neg) U Amphetamin/Meth Scrn (Neg) Urine MDEA MDMA (Ecstasy) Screen (Neg) MDMA Urine MDMA U Benzodiazepines Scrn (Neg) Ur Cocaine Metabolite (Neg) U Marijuana (THC) Screen (Neg) Anaplasma Smear See Comment A. phagocytophilum DNA Lyme Disease IgG Ab (Negative) Lyme Disease IgM Ab (Negative) COVID-19 Eval Order SARS-CoV-2 (PCR) (Negative) Influ A Molecular Assay (Negative) Influ B Molecular Assay (Negative) Medications Administered Current Inpatient Medications Acetaminophen (Acetaminophen 325 Mg Tab) 650 mg PO Q4H PRN PRN Reason: Pain or Fever Stop: 07/16/21 21:20 Last Admin: 06/16/21 23:11 Dose: 650 mg Documented by: Aspirin (Aspirin 81 Mg Ectab) 81 mg PO QAM [facility] Stop: 07/17/21 08:59 Last Admin: 06/17/21 08:05 Dose: 81 mg Documented by: Sodium Chloride (Nss 1000ml) 1,000 mls @ 100 mls/hr IV .Q10H [facility] Stop: 07/16/21 21:20 Last Admin: 06/17/21 09:29 Dose: 100 mls/hr Documented by: Ceftriaxone Sodium 2,000 mg/ (Dextrose) 70 mls @ 100 mls/hr IV Q24H [facility]; Protocol Stop: 06/26/21 21:29 Last Infusion: 06/17/21 00:39 Dose: Infused Documented by: Doxycycline Hyclate 100 mg/ (Dextrose) 110 mls @ 50 mls/hr IV Q12H [facility] Stop: 06/26/21 21:29 Last Infusion: 06/17/21 10:40 Dose: Infused Documented by: Heparin Sodium/Dextrose (Heparin Sodium/Dextrose) 25,000 units in 500 mls @ 27 mls/hr IV .[id number] [facility]; Protocol Stop: 07/16/21 21:44 Last Titration: 06/17/21 07:02 Dose: 1,350 units/hr, 27 mls/hr Documented by: Metoprolol Tartrate (Metoprolol Tartrate 25 Mg Tab) 12.5 mg PO BID [facility] Stop: 07/17/21 12:44 Last Admin: 06/17/21 13:35 Dose: 12.5 mg Documented by: Nitroglycerin (Nitroglycerin Sl 0.4 Mg/Tab Tab) 0.4 mg SL UD PRN PRN Reason: Chest Pain Stop: 07/16/21 21:20 Ondansetron HCl (Ondansetron Inj 2 Mg/Ml 2 Ml Vial) 4 mg IV Q6H PRN PRN Reason: Nausea Stop: 07/16/21 21:20
[2021-06-17] MEDS: HEPARIN SODIUM/DEXTROSE 25,000 UNITS/500 ML BAG IV SCH (15:51)
[2021-06-17 16:14] LABS: Basophils # (auto) 0.01 K/uL (0-0.2); Basophils % (auto) 0.3 %; Eosinophils # (auto) 0.04 K/uL (0-0.5); Eosinophils % (auto) 1.4 %; Hematocrit (blood only) 37.8 % (42-52); Hemoglobin 12.6 g/dL (14.0-18.0); Immature Granulocytes # (auto) 0.01 K/uL (0.00-0.02); Immature Granulocytes % (auto) 0.3 %; Lymphocytes # (auto) 0.74 K/uL (1.2-3.4); Lymphocytes % (auto) 25.5 %; Mean Corpuscular Hemoglobin 28.6 pg (25-34); Mean Corpuscular Hgb Conc 33.3 g/dL (32-36); Mean Corpuscular Volume 85.9 fL (80-100); Mean Platelet Volume 10.1 fL (7.4-10.4); Monocytes # (auto) 0.29 K/uL (0.11-0.59); Neutrophils # (auto) 1.81 K/uL (1.4-6.5); Neutrophils % (auto) 62.5 %; Platelet Count 114 K/uL (130-400); RDW Coefficient of Variation 12.9 % (11.5-14.5); RDW Standard Deviation 41.1 fL (36.4-46.3)
[2021-06-17] MEDS: cefTRIAXone SODIUM 2,000 MG in DEXTROSE 5% 50 ML IV SCH (19:59)
[2021-06-17] MEDS: ACETAMINOPHEN 325 MG TAB PO PRN (23:36)
[2021-06-18 06:04] LABS: Hematocrit (blood only) 36.8 % (42-52); Hemoglobin 12.1 g/dL (14.0-18.0); Mean Corpuscular Hemoglobin 28.6 pg (25-34); Mean Corpuscular Hgb Conc 32.9 g/dL (32-36); Mean Platelet Volume 10.7 fL (7.4-10.4); Platelet Count 126 K/uL (130-400); RDW Coefficient of Variation 12.9 % (11.5-14.5); RDW Standard Deviation 41.6 fL (36.4-46.3); Red Blood Count 4.23 M/uL (4.7-6.1); White Blood Count 2.59 K/uL (4.8-10.8)
[2021-06-18 06:18] LABS: Partial Thromboplastin Ratio 1.1; Partial Thromboplastin Time 29.9 Seconds (21.0-31.0)
[2021-06-18 06:39] LABS: BUN Creatinine Ratio 14.4 (10-20); Calcium 8.5 mg/dl (8.5-10.1); Creatinine Clr Calc Pharmacy 136.6 ml/min; Est GFR (African American) 132.4 ml/min; Est GFR (Non-African American) 114.3 ml/min; Magnesium 2.1 mg/dl (1.8-2.4); Potassium 3.7 mmol/L (3.5-5.1)
[2021-06-18 06:42] LABS: Phosphorus 3.7 mg/dl (2.5-4.9)
[2021-06-18] MEDS: DOXYCYCLINE HYCLATE 100 MG in DEXTROSE 5% 100 ML IV SCH ×2 (07:57→20:24)
--- NOTE | 2021-06-18 09:26 | Electrocardiogram Report ---
Test Reason : Blood Pressure : / mmHG Vent. Rate : 052 BPM Atrial Rate : 052 BPM P-R Int : 138 ms QRS Dur : 096 ms QT Int : 428 ms P-R-T Axes : 045 043 002 degrees QTc Int : 398 ms Sinus bradycardia with sinus arrhythmia Minor Anterior ST elevation, most consistent with repolarization variant Otherwise normal ECG When compared with ECG of 17-JUN-2021 04:13, Nonspecific T wave abnormality no longer evident in Anterior leads Confirmed by Curt Mi ([id number]) on 06/18/2021 9:26:06 AM Referred By: REFERRED SELF Confirmed By:Curt Mi
[2021-06-18] MEDS ORDERED: POTASSIUM CHLORIDE CRTAB 20 MEQ TABCR PO STA (09:33)
--- NOTE | 2021-06-18 09:33 | Hospitalist Progress Note ---
Date of Service June 18, 2021 Assessment & Plan (1) Elevated troponin level: Plan: This 45-year-old male presents with fever and fatigue of unknown etiology. 1. Fever and fatigue, unclear etiology. Laboratories are unremarkable except for lymphopenia The patient is SARS-CoV-2 PCR negative. The patient had a second dose of vaccination about 1 month ago. No exposure to COVID. CT of the chest unremarkable except for possible atelectasis. Possibility could be the Lyme disease or anaplasmosis as recently seeing ticks in his bed about 3 days ago, although his Lyme screen is negative, may take some time to show positive on the laboratories. Empirically started on Rocephin and doxycycline, fluids and follow the response and monitor in the hospital. Urine drug screen positive for ecstasy, likely from the use of Sudafed prior to coming to the hospital (for congestion) 2. NSTEMI, troponin of 3.6. EKG with ischemic changes on admission. Cardiology consulted and appreciate their inputs. Pt received aspirin and started on heparin on admission. Will Check for CK and CK-MB We will also check a drug screen and ESR and CRP levels. Lipid profile in the a.m. Cardiology consulted. Echocardiogram obtained - EF 60-65%. There is a small sized posterior wall motion abnormality with hypokinesis of the segments. There is mild tricuspid regurg, there is no pericardial effusion. Given ischemic changes on ECG and posterior wall motion abnormality on resting echo - Plan for cardiac cath tomorrow (06/19) n.p.o. after midnight. DVT prophylaxis, IV heparin now stopped. DISPOSITION: Plan to DC home once medically stable and follow-up with PCP and cardiology. Full code Admission and Anticipated Discharge Date Admission Date: June 16, 2021 Subjective Patient seen in follow-up fevers, malaise, elevated troponin Currently laying in bed, in no acute distress, reports he is already feeling much better Seen by cardiology, plan for cardiac cath tomorrow Patient's fianc at the bedside and updated Currently denies any chest pain, shortness of breath, no more fevers, no rashes no lower extremity edema Remains now afebrile Review of Systems Constitutional: no fever and no chills Respiratory: no cough and no dyspnea Cardiovascular: no chest pain and no palpitations Gastrointestinal: no abdominal pain, no nausea and no vomiting Physical Exam Physical Exam: GENERAL: The patient is of moderate build, not in acute distress. HEENT: NC/AT, EOMI, Pupils equal, round and reactive to light. Oral mucosa moist. NECK: No JVD or neck masses. CARDIOVASCULAR: S1 and S2 heard. Regular rate and rhythm. No murmur, no gallop. RESPIRATORY SYSTEM: Normal AP diameter. No accessory muscle use. No wheezing, no crackles. ABDOMEN: Soft, bowel sounds present, nontender, no distention. NEURO: Alert and oriented x3, no facial asymmetry, speech fluent, moves extremities spontaneously EXTREMITIES: No edema, no erythema. Results & Data Results & Data ([facility]) Vital Signs (Past 12 Hours) Vital Signs Temp Pulse Pulse Resp BP Pulse Ox 06/18/21 08:00 37.0 C 61 18 109/60 98 06/18/21 07:09 52 L 06/18/21 03:45 36.5 C 59 L 15 100/68 99 06/17/21 23:59 89 06/17/21 23:03 37.2 C 81 19 110/68 97 Laboratory Results 06/18/21 06/18/21 06/18/21 Range/Units 05:28 05:28 05:28 WBC 2.59 L (4.8-10.8) K/uL RBC 4.23 L (4.7-6.1) M/uL Hgb 12.1 L (14.0-18.0) g/dL Hct 36.8 L (42-52) % MCV 87.0 (80-100) fL MCH 28.6 (25-34) pg MCHC 32.9 (32-36) g/dL RDW Std Deviation 41.6 (36.4-46.3) fL RDW Coeff of Jennifer 12.9 (11.5-14.5) % Plt Count 126 L (130-400) K/uL MPV 10.7 H (7.4-10.4) fL Immature Gran % (Auto) % Neut % (Auto) % Lymph % (Auto) % Menard % (Auto) % Eos % (Auto) % Baso % (Auto) % Neut # (Auto) (1.4-6.5) K/uL Lymph # (Auto) (1.2-3.4) K/uL Menard # (Auto) (0.11-0.59) K/uL Eos # (Auto) (0-0.5) K/uL Baso # (Auto) (0-0.2) K/uL Immature Gran # (Auto) (0.00-0.02) K/uL APTT 29.9 (21.0-31.0) Seconds PTT Ratio 1.1 Sodium 138 (136-145) mmol/L Potassium 3.7 (3.5-5.1) mmol/L Chloride 107 (98-107) mmol/L Carbon Dioxide 28 (21-32) mmol/L Anion Gap 3.0 (3-11) BUN 10 (7-18) mg/dl Creatinine 0.72 (0.6-1.4) mg/dl Est Cr Clr Drug Dosing 136.6 ml/min Est GFR ( Amer) 132.4 ml/min Est GFR (Non-Af Amer) 114.3 ml/min BUN/Creatinine Ratio 14.4 (10-20) Glucose 99 (70-99) mg/dl Calcium 8.5 (8.5-10.1) mg/dl Phosphorus 3.7 (2.5-4.9) mg/dl Magnesium 2.1 (1.8-2.4) mg/dl Troponin I (0-0.045) ng/ml Triglycerides 200 H (0-150) mg/dl Cholesterol 150 (0-200) mg/dl LDL Cholesterol Direct mg/dl LDL Cholesterol, Calc 93 mg/dl VLDL Cholesterol, Calc 40 mg/dl HDL Cholesterol 17 mg/dl Cholesterol/HDL Ratio 9 TSH (0.300-4.500) uIu/ml 06/17/21 06/17/21 06/17/21 Range/Units 15:59 15:59 11:04 WBC 2.90 L (4.8-10.8) K/uL RBC 4.40 L (4.7-6.1) M/uL Hgb 12.6 L (14.0-18.0) g/dL Hct 37.8 L (42-52) % MCV 85.9 (80-100) fL MCH 28.6 (25-34) pg MCHC 33.3 (32-36) g/dL RDW Std Deviation 41.1 (36.4-46.3) fL RDW Coeff of Jennifer 12.9 (11.5-14.5) % Plt Count 114 L (130-400) K/uL MPV 10.1 (7.4-10.4) fL Immature Gran % (Auto) 0.3 % Neut % (Auto) 62.5 % Lymph % (Auto) 25.5 % Menard % (Auto) 10.0 % Eos % (Auto) 1.4 % Baso % (Auto) 0.3 % Neut # (Auto) 1.81 (1.4-6.5) K/uL Lymph # (Auto) 0.74 L (1.2-3.4) K/uL Menard # (Auto) 0.29 (0.11-0.59) K/uL Eos # (Auto) 0.04 (0-0.5) K/uL Baso # (Auto) 0.01 (0-0.2) K/uL Immature Gran # (Auto) 0.01 (0.00-0.02) K/uL APTT (21.0-31.0) Seconds PTT Ratio Sodium (136-145) mmol/L Potassium (3.5-5.1) mmol/L Chloride (98-107) mmol/L Carbon Dioxide (21-32) mmol/L Anion Gap (3-11) BUN (7-18) mg/dl Creatinine (0.6-1.4) mg/dl Est Cr Clr Drug Dosing ml/min Est GFR ( Amer) ml/min Est GFR (Non-Af Amer) ml/min BUN/Creatinine Ratio (10-20) Glucose (70-99) mg/dl Calcium (8.5-10.1) mg/dl Phosphorus (2.5-4.9) mg/dl Magnesium (1.8-2.4) mg/dl Troponin I 1.560 H* (0-0.045) ng/ml Triglycerides (0-150) mg/dl Cholesterol (0-200) mg/dl LDL Cholesterol Direct 88 mg/dl LDL Cholesterol, Calc mg/dl VLDL Cholesterol, Calc mg/dl HDL Cholesterol mg/dl Cholesterol/HDL Ratio TSH 2.030 (0.300-4.500) uIu/ml
[2021-06-18] MEDS: METOPROLOL TARTRATE 25 MG TAB PO SCH ×2 (09:41→20:33)
[2021-06-18] MEDS: ASPIRIN 81 MG ECTAB PO SCH (09:41)
--- NOTE | 2021-06-18 12:00 | Cardiology Progress Note ---
Date of Service June 18, 2021 Assessment & Plan (1) Elevated troponin level: Plan: Initial findings in the setting of an acute febrile illness with associated leukopenia and thrombocytopenia. EKG with minimal baseline abnormalities improved. Minimal risk factors for coronary artery disease but will need better define Plan proceed with diagnostic cardiac catheterization tomorrow morning with repeat laboratory studies prior Heparin held. Will follow platelet count and white cell count Admission and Anticipated Discharge Date Admission Date: June 16, 2021 Subjective Patient was seen and examined, chart, medications, telemetry reviewed. No chest pain or discomfort overnight no further fevers or chills. No dizziness or lightheadedness. No arrhythmias on telemetry. Review of Systems Review of Systems: All systems reviewed & are unremarkable except as noted in Subjective Physical Exam Constitutional: WD/WN, vitals as above Eyes: PERRL, conjunctivae normal, anicteric sclerae ENMT: external ear and nose normal, oropharynx normal Neck: trachea midline, no thyromegaly Respiratory: normal respiratory effort, lungs clear to auscultation Cardiovascular: Rate/Rhythm: regular rate and regular rhythm Heart Sounds: normal S1 and normal S2; no gallop, no murmur and no cardiac rub Palpation: normal PMI Vessels: normal carotid upstroke and radial pulses present; no JVD and no carotid bruit Extremities: no edema Gastrointestinal (Abdomen): normal bowel sounds, soft, nontender, no hepatosplenomegaly Musculoskeletal: no cyanosis or clubbing, extremities motor strength 5/5 Skin: no rashes, warm and dry Neurologic: PERRL, EOMI, accommodation nl, no face palsy, no dysarthria Psychiatric: A+Ox3, euthymic affect Results & Data ([facility]) Vital Signs (Past 12 Hours) Vital Signs Temp Pulse Pulse Resp BP Pulse Ox 06/18/21 08:00 37.0 C 61 18 109/60 98 06/18/21 07:09 52 L 06/18/21 03:45 36.5 C 59 L 15 100/68 99 06/17/21 23:59 89 Laboratory Results Laboratory Results - last 24 hr 06/17/21 06/17/21 06/18/21 15:59 15:59 05:28 WBC 2.90 L RBC 4.40 L Hgb 12.6 L Hct 37.8 L MCV 85.9 MCH 28.6 MCHC 33.3 RDW Std Deviation 41.1 RDW Coeff of Jennifer 12.9 Plt Count 114 L MPV 10.1 Immature Gran % (Auto) 0.3 Neut % (Auto) 62.5 Lymph % (Auto) 25.5 Titus % (Auto) 10.0 Eos % (Auto) 1.4 Baso % (Auto) 0.3 Neut # (Auto) 1.81 Lymph # (Auto) 0.74 L Titus # (Auto) 0.29 Eos # (Auto) 0.04 Baso # (Auto) 0.01 Immature Gran # (Auto) 0.01 APTT 29.9 PTT Ratio 1.1 Sodium Potassium Chloride Carbon Dioxide Anion Gap BUN Creatinine Est Cr Clr Drug Dosing Est GFR ( Amer) Est GFR (Non-Af Amer) BUN/Creatinine Ratio Glucose Calcium Phosphorus Magnesium Triglycerides Cholesterol LDL Cholesterol Direct 88 LDL Cholesterol, Calc VLDL Cholesterol, Calc HDL Cholesterol Cholesterol/HDL Ratio 06/18/21 06/18/21 05:28 05:28 WBC 2.59 L RBC 4.23 L Hgb 12.1 L Hct 36.8 L MCV 87.0 MCH 28.6 MCHC 32.9 RDW Std Deviation 41.6 RDW Coeff of Jennifer 12.9 Plt Count 126 L MPV 10.7 H Immature Gran % (Auto) Neut % (Auto) Lymph % (Auto) Titus % (Auto) Eos % (Auto) Baso % (Auto) Neut # (Auto) Lymph # (Auto) Titus # (Auto) Eos # (Auto) Baso # (Auto) Immature Gran # (Auto) APTT PTT Ratio Sodium 138 Potassium 3.7 Chloride 107 Carbon Dioxide 28 Anion Gap 3.0 BUN 10 Creatinine 0.72 Est Cr Clr Drug Dosing 136.6 Est GFR ( Amer) 132.4 Est GFR (Non-Af Amer) 114.3 BUN/Creatinine Ratio 14.4 Glucose 99 Calcium 8.5 Phosphorus 3.7 Magnesium 2.1 Triglycerides 200 H Cholesterol 150 LDL Cholesterol Direct LDL Cholesterol, Calc 93 VLDL Cholesterol, Calc 40 HDL Cholesterol 17 Cholesterol/HDL Ratio 9 ECG Additional Comments: 18-JUN-2021 04:24:58 [facility] ROUTINE RETRIEVAL Sinus bradycardia with sinus arrhythmia Minor Anterior ST elevation, most consistent with repolarization variant Otherwise normal ECG When compared with ECG of 17-JUN-2021 04:13, Nonspecific T wave abnormality no longer evident in Anterior leads
[2021-06-18] MEDS: cefTRIAXone SODIUM 2,000 MG in DEXTROSE 5% 50 ML IV SCH (20:24)
[2021-06-19 06:32] LABS: Hematocrit (blood only) 41.5 % (42-52); Hemoglobin 13.7 g/dL (14.0-18.0); Mean Corpuscular Hemoglobin 28.9 pg (25-34); Mean Corpuscular Volume 87.6 fL (80-100); Mean Platelet Volume 10.9 fL (7.4-10.4); Platelet Count 168 K/uL (130-400); RDW Standard Deviation 41.8 fL (36.4-46.3); Red Blood Count 4.74 M/uL (4.7-6.1); White Blood Count 3.48 K/uL (4.8-10.8)
[2021-06-19 07:01] LABS: Albumin Level 3.3 gm/dl (3.4-5.0); BUN Creatinine Ratio 15.9 (10-20); Calcium 8.8 mg/dl (8.5-10.1); Creatinine Clr Calc Pharmacy 124.5 ml/min; Est GFR (African American) 127.5 ml/min; Magnesium 2.1 mg/dl (1.8-2.4)
[2021-06-19 07:02] LABS: Albumin Globulin Ratio 0.8 (0.9-2); Bilirubin,Total 0.3 mg/dl (0.2-1); Globulin 3.9 gm/dl (2.5-4.0); Phosphorus 4.1 mg/dl (2.5-4.9); Total Protein 7.2 gm/dl (6.4-8.2)
--- NOTE | 2021-06-19 07:25 | Hospitalist Progress Note ---
Date of Service June 19, 2021 Assessment & Plan (1) Elevated troponin level: Plan: Possbile myocarditis This 45-year-old male presents with fever and fatigue of unknown etiology. 1. Fever and fatigue, unclear etiology. Laboratories are unremarkable except for lymphopenia The patient is SARS-CoV-2 PCR negative. The patient had a second dose of vaccination about 1 month ago. No exposure to COVID. CT of the chest unremarkable except for possible atelectasis. Possibility could be the Lyme disease or anaplasmosis as recently seeing ticks in his bed about 3 days ago, although his Lyme screen is negative, may take some time to show positive on the laboratories. Empirically started on Rocephin and doxycycline, fluids and follow the response and monitor in the hospital. Urine drug screen positive for ecstasy, likely from the use of Sudafed prior to coming to the hospital (for congestion) Patient afebrile in the hospital, will discharge on doxycycline with close follow-up with PCP. 2. NSTEMI, troponin of 3.6. EKG with ischemic changes on admission. Cardiology consulted and appreciate their inputs. Pt received aspirin and started on heparin on admission. Will Check for CK and CK-MB check a drug screen and ESR and CRP levels. Lipid profile in the a.m. Cardiology consulted. Echocardiogram obtained - EF 60-65%. There is a small sized posterior wall motion abnormality with hypokinesis of the segments. There is mild tricuspid regurg, there is no pericardial effusion. Given ischemic changes on ECG and posterior wall motion abnormality on resting echo - Plan for cardiac cath Pt s/p cardiac cath w/ Dr. Adams on 06/19/2021 - Cardiac catheterization demonstrates no obstructive coronary disease and preserved LV systolic function. Troponins may represent very mild myocarditis in association with acute febrile illness/inflammatory process. No signs of further cardiac deterioration by EKG and cardiac catheterization. Recommendations would continue aspirin and beta-roseann for 6 to 12 weeks. Follow-up cardiology 2 to 4 weeks DISPOSITION: Plan to DC home today and follow-up with PCP and cardiology. Full code Admission and Anticipated Discharge Date Admission Date: June 16, 2021 Subjective Patient seen in follow-up fevers, malaise, elevated troponin Currently laying in bed, in no acute distress, reports he is already feeling much better Seen by cardiology, now s/p cardiac cath earlier today Currently denies any chest pain, shortness of breath, no more fevers, no rashes no lower extremity edema Remains now afebrile Eager to be discharged home. Review of Systems Constitutional: no fever and no chills Respiratory: no cough and no dyspnea Cardiovascular: no chest pain and no palpitations Gastrointestinal: no abdominal pain, no nausea and no vomiting Physical Exam Physical Exam: GENERAL: The patient is of moderate build, not in acute distress. HEENT: NC/AT, EOMI, Pupils equal, round and reactive to light. Oral mucosa moist. NECK: No JVD or neck masses. CARDIOVASCULAR: S1 and S2 heard. Regular rate and rhythm. No murmur, no gallop. RESPIRATORY SYSTEM: Normal AP diameter. No accessory muscle use. No wheezing, no crackles. ABDOMEN: Soft, bowel sounds present, nontender, no distention. NEURO: Alert and oriented x3, no facial asymmetry, speech fluent, moves extremities spontaneously EXTREMITIES: No edema, no erythema. Results & Data Results & Data ([facility]) Vital Signs (Past 12 Hours) Vital Signs Temp Pulse Pulse Resp BP Pulse Ox 06/19/21 03:38 36.3 C L 56 L 16 105/66 100 06/18/21 23:58 72 06/18/21 23:37 36.7 C 67 18 117/79 99 06/18/21 19:32 36.6 C 66 18 111/66 97 Laboratory Results 06/19/21 06/19/21 Range/Units 05:54 05:54 WBC 3.48 L (4.8-10.8) K/uL RBC 4.74 (4.7-6.1) M/uL Hgb 13.7 L (14.0-18.0) g/dL Hct 41.5 L (42-52) % MCV 87.6 (80-100) fL MCH 28.9 (25-34) pg MCHC 33.0 (32-36) g/dL RDW Std Deviation 41.8 (36.4-46.3) fL RDW Coeff of Jennifer 13.0 (11.5-14.5) % Plt Count 168 (130-400) K/uL MPV 10.9 H (7.4-10.4) fL Sodium 139 (136-145) mmol/L Potassium 4.0 (3.5-5.1) mmol/L Chloride 108 H (98-107) mmol/L Carbon Dioxide 29 (21-32) mmol/L Anion Gap 2.0 L (3-11) BUN 13 (7-18) mg/dl Creatinine 0.79 (0.6-1.4) mg/dl Est Cr Clr Drug Dosing 124.5 ml/min Est GFR ( Amer) 127.5 ml/min Est GFR (Non-Af Amer) 110.0 ml/min BUN/Creatinine Ratio 15.9 (10-20) Glucose 95 (70-99) mg/dl Calcium 8.8 (8.5-10.1) mg/dl Phosphorus 4.1 (2.5-4.9) mg/dl Magnesium 2.1 (1.8-2.4) mg/dl Total Bilirubin 0.3 (0.2-1) mg/dl AST 29 (15-37) U/L ALT 39 (12-78) U/L Alkaline Phosphatase 74 (45-117) U/L Total Protein 7.2 (6.4-8.2) gm/dl Albumin 3.3 L (3.4-5.0) gm/dl Globulin 3.9 (2.5-4.0) gm/dl Albumin/Globulin Ratio 0.8 L (0.9-2) Medications Administered Current Inpatient Medications Acetaminophen (Acetaminophen 325 Mg Tab) 650 mg PO Q4H PRN PRN Reason: Pain or Fever Stop: 07/16/21 21:20 Last Admin: 06/17/21 23:36 Dose: 650 mg Documented by: Aspirin (Aspirin 81 Mg Ectab) 81 mg PO QAM [facility] Stop: 07/17/21 08:59 Last Admin: 06/18/21 09:41 Dose: 81 mg Documented by: Ceftriaxone Sodium 2,000 mg/ (Dextrose) 70 mls @ 100 mls/hr IV Q24H [facility]; Protocol Stop: 06/26/21 21:29 Last Infusion: 06/18/21 21:16 Dose: Infused Documented by: Doxycycline Hyclate 100 mg/ (Dextrose) 110 mls @ 50 mls/hr IV Q12H [facility] Stop: 06/26/21 21:29 Last Infusion: 06/18/21 22:42 Dose: Infused Documented by: Metoprolol Tartrate (Metoprolol Tartrate 25 Mg Tab) 12.5 mg PO BID [facility] Stop: 07/17/21 12:44 Last Admin: 06/18/21 20:33 Dose: 12.5 mg Documented by: Nitroglycerin (Nitroglycerin Sl 0.4 Mg/Tab Tab) 0.4 mg SL UD PRN PRN Reason: Chest Pain Stop: 07/16/21 21:20 Ondansetron HCl (Ondansetron Inj 2 Mg/Ml 2 Ml Vial) 4 mg IV Q6H PRN PRN Reason: Nausea Stop: 07/16/21 21:20
[2021-06-19] MEDS: METOPROLOL TARTRATE 25 MG TAB PO SCH (08:12)
[2021-06-19] MEDS: ASPIRIN 81 MG ECTAB PO SCH (08:13)
[2021-06-19] MEDS: DOXYCYCLINE HYCLATE 100 MG in DEXTROSE 5% 100 ML IV SCH (08:15)
--- NOTE | 2021-06-19 09:14 | Pre Anesthesia Assessment ---
Date of Service June 19, 2021 Pre Sedation Assessment Vital Signs Temp Pulse Pulse Resp BP Pulse Ox 06/19/21 09:32 65 20 115/81 100 06/19/21 07:27 36.7 C 66 20 114/73 100 06/19/21 03:38 36.3 C L 56 L 16 105/66 100 06/18/21 23:58 72 06/18/21 23:37 36.7 C 67 18 117/79 99 06/18/21 19:32 36.6 C 66 18 111/66 97 06/18/21 16:00 36.9 C 81 83 16 111/64 99 06/18/21 12:00 37.0 C 72 18 131/63 95 Cardiovascular RRR, no murmur, no edema no JVD Respiratory normal respiratory effort, lungs clear to auscultation Pre-Sedation Airway Assessment Smoking Status: Never smoker Hx Sleep Apnea: No Hx Difficult Intubation: No Short, Thick Neck: No Mallampati Class: II ASA: ASA3 NPO Status Date of Last Intake of Solid Food: 06/18/21 Procedure Planning Contraindications for Sedation: none Current Medications Reviewed: Yes Notes The planned sedation has been discussed with the patient. Informed Consent was obtained. I have identified the patient, determined the appropriateness of sedation and have assessed the patient immediately prior to the procedure. All medicine(s) and interventions are by my order.
[2021-06-19] MEDS ORDERED: MIDAZOLAM HCL 1 MG/ML 2ML VIAL ONE (09:59)
[2021-06-19] MEDS ORDERED: HEPARIN (PORCINE) 1000 UNIT/ML 10 ML (CATH LAB USE ONLY) ONE (09:59)
[2021-06-19] MEDS ORDERED: niCARdipine HCL INJ 2.5 MG/ML 10 ML AMP ONE (09:59)
[2021-06-19] MEDS ORDERED: fentaNYL citrate 100 MCG/2 ML VIAL ONE (10:00)
[2021-06-19] MEDS ORDERED: NITROGLYCERIN/D5W 100MCG/ML 20ML SYR ONE (10:00)
--- NOTE | 2021-06-19 10:40 | Post Anesthesia Assessment ---
Date of Service June 19, 2021 Post Sedation Assessment Vital Signs Temp Pulse Pulse Resp BP Pulse Ox 06/19/21 09:32 65 20 115/81 100 06/19/21 07:27 36.7 C 66 20 114/73 100 06/19/21 03:38 36.3 C L 56 L 16 105/66 100 06/18/21 23:58 72 06/18/21 23:37 36.7 C 67 18 117/79 99 06/18/21 19:32 36.6 C 66 18 111/66 97 06/18/21 16:00 36.9 C 81 83 16 111/64 99 06/18/21 12:00 37.0 C 72 18 131/63 95 Recovery Score Activity: Moves 4 extremities Respiration: Deep Breath/Cough Circulation: +/-20% PreAnes Value Consciousness: Fully Awake Oxygen Saturation: > 92% On Room Air Discharge Sedation Level of Care: Phase I Post Sedation Plan On clinical assessment, the patient appears to have tolerated the sedation without complications. Patient is recovering as anticipated. Patient will continue to be monitored by nursing and may be discharged when sedation discharge criteria are met per below protocol. Upon Completions of procedure up to 15 minutes continue every 5 minute vital signs and the P.A.R. score; then discharge to a Phase I or Fast Track to Phase II per the following guidelines: * Discharge Patient to appropriate Phase II area if PAR is 8 or greater or return to pre- procedure baseline. The post - procedure orders will be as directed. * If PAR score is less than 8 or not return to pre-procedure baseline then patient will follow Phase I monitoring till PAR is reached for Phase II. The Phase I may be done in procedure room or may call to secure a Phase I area. * If naloxone or flumazenil are used for reversal, hold in Phase I for contin ued monitoring from when last reversal dose was given for a minimum of 60 minutes or longer pending the nurse and/or physician discretion of patient condition before discharge to Phase II. Please call the Sedation Physician to re-evaluate and complete post-note for discharge to Phase II area. Do NOT discharge from procedure sedation or Phase 1 until post- sedation evaluation note is complete by procedure /sedation MD Sedation Discharge Instructions to be given to the patient at discharge to home.
[2021-06-19] MEDS ORDERED: SODIUM CHLORIDE 0.9% 1000ML 1,000 ML IV SCH (10:45)
--- NOTE | 2021-06-19 10:47 | Cardiac Catheterization ---
Cardiac Cath Procedure Brief Procedure Date June 19, 2021 Pre-Procedure Diagnosis Pre-Procedure Diagnosis: Cardiomyopathy AUC Score AUC Score: 7 Post-Procedure Diagnosis Post-Procedure Diagnosis: Normal Coronary Arteries, Normal LV Systolic Function and Normal Intracardiac Pressures Procedure(s) Performed Procedure(s) Performed: Coronary Angiography, Left Heart Cath and LV Angiography Sanforizer Shamar Adams MD [employer] Manager(s) Josefina Jackson Estimated Blood Loss Estimated Blood Loss: <15cc Medication(s) Medication(s): Fentanyl (12.5 mcg IV), Heparin (5000 units IV), Lidocaine 1% (Local infiltration access site), Nicardipine (250 mcg intra-arterial after arterial sheath insertion) and Versed (1 mg IV) Preliminary Findings Normal right dominant coronary anatomy LV systolic function EF 55% Normal left end-diastolic pressure, LVEDP 14 Recommendations Recommendations: Medical Therapy and/or Counseling Specimens Specimens: None Fluids (cc crystalloids) Fluids (cc crystalloids): 55 Anesthesia Start time 1003, stop time 1033 Procedural Complication(s) None Disposition PCU
--- NOTE | 2021-06-19 10:51 | Cardiac Catheterization ---
Cardiac Cath Procedure Full Procedure Date June 19, 2021 Pre-Procedure Diagnosis Pre-Procedure Diagnosis: Cardiomyopathy AUC Score AUC Score: 7 Post-Procedure Diagnosis Post-Procedure Diagnosis: Normal Coronary Arteries, Normal LV Systolic Function and Normal Intracardiac Pressures Procedure(s) Performed Procedure(s) Performed: Coronary Angiography, Left Heart Cath and LV Angiography Cuff Slitter Shamar Adams MD Mechanic Foreman(s) Josefina Jackson Estimated Blood Loss Estimated Blood Loss: <15cc Medication(s) Medication(s): Fentanyl (12.5 mcg IV), Heparin (5000 units IV), Lidocaine 1% (Local infiltration access site), Nicardipine (250 mcg intra-arterial after arterial sheath insertion) and Versed (1 mg IV) Summary of Findings Impression: Normal right dominant coronary anatomy LV systolic function EF 55% Normal left end-diastolic pressure, LVEDP 14 Coronary angiography: Right dominant anatomy Left main: Normal length and caliber and free of disease or calcification Left anterior descending: Type III in distribution. It gives rise to a moderate bifurcating high diagonal branch and a large second diagonal branch in its midportion before continuing to beyond the apex. There is no disease in the left anterior descending or its branches Left circumflex: Large but nondominant. It gives rise to a small high marginal branch, a large long obtuse marginal branch and a bifurcating posterior lateral. There is no disease in the left circumflex Right coronary artery: Large and dominant distribution. It gives rise to an RV branch at its origin to small right ventricular branches in its midportion a moderate size posterior descending artery at the AV groove and 2 posterior ventricular branches. There is no disease in the right coronary artery LV angiography: Left ventricle is of normal size and overall function EF 55% there is no mitral insufficiency Hemodynamics: Left ventricular pressure 127/5/14 LVEDP 14 Catheters: 6 Argentine long glide sheath (accessed obtained using ultrasound guidance), 5 [place] 5 Argentine straight pigtail Hemodynamics Rest Ao:: 128/86/105 Final Ao: 133/86/10 LV: 127/5/14 Recommendations Recommendations: Medical Therapy and/or Counseling Specimens Specimens: None Radiation Exposure (mGy) 1139 Contrast (mls) 100 cc Visipaque Fluids (cc crystalloids) Fluids (cc crystalloids): 55 Anesthesia Start time 1003, stop time 1033 Procedural Complication(s) None Disposition PCU I attest to the content of the Intraoperative Record and any orders documented therein. Any exceptions are noted below. ACC Data: Field Trainer Cardiac Status Clinical evaluation leading to the procedure Patient is a 45-year-old male who presented with acute febrile illness and significant elevation in troponin possible myocarditis CAD Presenation: No Sxs, No angina Anginal Classification: No Symptoms Heart Failure: No Cardiogenic Shock within 24 Hours: No Cardiac Arrest within 24 Hours: No Imaging Studies Past 6 Months: Yes Stress Studies Past 6 Months: No Standard Exercise Test: No Stress Echocardiogram: No Stress Testing w/SPECT MPI: No Cardiac CTA: No Coronary Anatomy Dominant: Right Left Main (% Stenosis): Normal LAD (% Stenosis): Normal D1 (% Stenosis): Normal D2 (% Stenosis): Normal Circumflex (% Stenosis): Normal OM1 (% Stenosis): Normal OM2 (% Stenosis): Normal L PL1 (% Stenosis): Normal RCA (% Stenosis): Normal R PDA (% Stenosis): Normal R PL1 (% Stenosis): Normal R PL2 (% Stenosis): Normal Left Ventricular Angiography EF (%): 55 Mitral Regurgitation: None Diagnostic Physicians Name: Shamar Adams MD Status: Urgent Closure Device Percutaneous Entry Location: Radial Recommendations: Medical Therapy and/or Counseling
[2021-06-19 13:09] VITALS: BP 122/62; O2SAT 97
--- NOTE | 2021-06-19 13:53 | Cardiology Progress Note ---
Date of Service June 19, 2021 Assessment & Plan (1) Elevated troponin level: Plan: Initial findings in the setting of an acute febrile illness with associated leukopenia and thrombocytopenia. EKG with minimal baseline abnormalities improved. Cardiac catheterization demonstrates no obstructive coronary disease and preserved LV systolic function. Troponins may represent very mild myocarditis in association with acute febrile illness/inflammatory process. No signs of further cardiac deterioration by EKG and cardiac catheterization. Recommendations would continue aspirin and beta-roseann 6 to 12 weeks. Follow- up cardiology 2 to 4 weeks Admission and Anticipated Discharge Date Admission Date: June 16, 2021 Subjective Patient seen both pre and post cardiac catheterization today. Tolerated procedure well no evidence of obstructive coronary disease present LV systolic function preserved. No arrhythmias or tachypalpitations no bleeding issues Review of Systems Review of Systems: All systems reviewed & are unremarkable except as noted in Subjective Physical Exam Constitutional: WD/WN, vitals as above Eyes: PERRL, conjunctivae normal, anicteric sclerae ENMT: Mallampati Class: II Neck: trachea midline, no thyromegaly Respiratory: normal respiratory effort, lungs clear to auscultation Cardiovascular: RRR, no murmur, no edema Rate/Rhythm: regular rate and regular rhythm Heart Sounds: normal S1 and normal S2; no gallop, no murmur and no cardiac rub Palpation: normal PMI Vessels: normal carotid upstroke and radial pulses present (Right radial access site healing well); no JVD and no carotid bruit Extremities: no edema Gastrointestinal (Abdomen): normal bowel sounds, soft, nontender, no hepatosplenomegaly Musculoskeletal: no cyanosis or clubbing, extremities motor strength 5/5 Skin: no rashes, warm and dry Neurologic: PERRL, EOMI, accommodation nl, no face palsy, no dysarthria Psychiatric: A+Ox3, euthymic affect Results & Data ([facility]) Vital Signs (Past 12 Hours) Vital Signs Temp Pulse Resp BP Pulse Ox 06/19/21 12:56 38.6 C H 75 16 122/62 97 06/19/21 11:56 36.8 C 76 20 126/75 98 06/19/21 11:26 36.8 C 75 20 124/64 98 06/19/21 11:01 68 20 126/97 100 06/19/21 10:56 36.6 C 72 18 128/68 98 06/19/21 10:41 36.8 C 75 20 127/64 98 06/19/21 10:40 66 20 131/91 100 06/19/21 09:32 65 20 115/81 100 06/19/21 07:27 36.7 C 66 20 114/73 100 06/19/21 03:38 36.3 C L 56 L 16 105/66 100 Laboratory Results Laboratory Results - last 24 hr 06/19/21 06/19/21 05:54 05:54 WBC 3.48 L RBC 4.74 Hgb 13.7 L Hct 41.5 L MCV 87.6 MCH 28.9 MCHC 33.0 RDW Std Deviation 41.8 RDW Coeff of Jennifer 13.0 Plt Count 168 MPV 10.9 H Sodium 139 Potassium 4.0 Chloride 108 H Carbon Dioxide 29 Anion Gap 2.0 L BUN 13 Creatinine 0.79 Est Cr Clr Drug Dosing 124.5 Est GFR ( Amer) 127.5 Est GFR (Non-Af Amer) 110.0 BUN/Creatinine Ratio 15.9 Glucose 95 Calcium 8.8 Phosphorus 4.1 Magnesium 2.1 Total Bilirubin 0.3 AST 29 ALT 39 Alkaline Phosphatase 74 Total Protein 7.2 Albumin 3.3 L Globulin 3.9 Albumin/Globulin Ratio 0.8 L Medications Administered Current Medications Acetaminophen (Acetaminophen 325 Mg Tab) 650 mg PO Q4H PRN PRN Reason: Pain or Fever Stop: 07/16/21 21:20 Last Admin: 06/17/21 23:36 Dose: 650 mg Documented by: Aspirin (Aspirin 81 Mg Ectab) 81 mg PO QAM [facility] Stop: 07/17/21 08:59 Last Admin: 06/19/21 08:13 Dose: 81 mg Documented by: Ceftriaxone Sodium 2,000 mg/ (Dextrose) 70 mls @ 100 mls/hr IV Q24H [facility]; Protocol Stop: 06/26/21 21:29 Last Infusion: 06/18/21 21:16 Dose: Infused Documented by: Doxycycline Hyclate 100 mg/ (Dextrose) 110 mls @ 50 mls/hr IV Q12H [facility] Stop: 06/26/21 21:29 Last Infusion: 06/19/21 10:29 Dose: Infused Documented by: Sodium Chloride (Nss 1000ml) 1,000 mls @ 125 mls/hr IV .Q8H [facility] Stop: 06/19/21 14:44 Last Admin: 06/19/21 11:52 Dose: 125 mls/hr Documented by: Metoprolol Tartrate (Metoprolol Tartrate 25 Mg Tab) 12.5 mg PO BID MARYSOL Stop: 07/17/21 12:44 Last Admin: 06/19/21 08:12 Dose: 12.5 mg Documented by: Nitroglycerin (Nitroglycerin Sl 0.4 Mg/Tab Tab) 0.4 mg SL UD PRN PRN Reason: Chest Pain Stop: 07/16/21 21:20 Ondansetron HCl (Ondansetron Inj 2 Mg/Ml 2 Ml Vial) 4 mg IV Q6H PRN PRN Reason: Nausea Stop: 07/16/21 21:20
[2021-06-19 14:13] VITALS: TEMP 98.2
--- NOTE | 2021-06-19 14:33 | Discharge Summary ---
Date of Service June 19, 2021 Admission HPI Per Admitting Provider This 45-year-old male with past medical history significant for history of blood per rectum, GERD, dermatitis, arthralgia of right knee, family history of cardiac disorder in mother, presents with fever and fatigue. The patient since yesterday afternoon is having fevers and feeling fatigued and weak and nauseous. That is the reason he came here. Denies any chest pain or shortness of breath. He has some mild headache, no neck pain. No blurred visions, no earache, no runny nose, no sore throat, no cough, no difficulty swallowing. Appetite is okay. No loss of sense of smell or taste. No abdominal pain, normal bowel and bladder movements. Denies any blood in the stools or black stools. No hematuria, no burning micturition. No rash. No swelling in the legs. He says he saw tick in his bed 3 days ago. He says he walks his dogs outside and he thinks that is how the ticks might have come inside house, and he and his significant other checked in his back and his arms and legs, they could not see any tick bites. He has some lesions in the back. They thought it could be some pimple . Otherwise, currently resting comfortably and hemodynamically stable. He has finished the second dose of COVID shot about a month ago and is not exposed to any COVID patients and did not travel outside. Admission Exam Per Admitting Provider GENERAL: The patient is of moderate build, not in acute distress. VITAL SIGNS: T-max 38.8, pulse 108, blood pressure 118/72, oxygen 98% on room air. HEENT: Pupils equal, round and reactive to light. Oral mucosa moist. NECK: No JVD or neck masses. CARDIOVASCULAR: S1 and S2 heard. Regular rate and rhythm. No murmur, no gallop. RESPIRATORY SYSTEM: Normal AP diameter. No accessory muscle use. No wheezing, no crackles. ABDOMEN: Soft, bowel sounds present, nontender, no distention. CENTRAL NERVOUS SYSTEM: Cranial nerves II-XII grossly intact, nonfocal. EXTREMITIES: No edema, no erythema. Principal Diagnosis Elevated troponin, possible myocarditis Fever Possible tickborne disease Discharge Exam GENERAL: The patient is of moderate build, not in acute distress. HEENT: NC/AT, EOMI, Pupils equal, round and reactive to light. Oral mucosa moist. NECK: No JVD or neck masses. CARDIOVASCULAR: S1 and S2 heard. Regular rate and rhythm. No murmur, no gallop. RESPIRATORY SYSTEM: Normal AP diameter. No accessory muscle use. No wheezing, no crackles. ABDOMEN: Soft, bowel sounds present, nontender, no distention. NEURO: Alert and oriented x3, no facial asymmetry, speech fluent, moves extremities spontaneously EXTREMITIES: No edema, no erythema. Discharge Data Allergies Allergy/AdvReac Type Severity Reaction Status Date / Time No Known Allergies Allergy Verified 06/16/21 18:12 Consultations 06/16/21 19:20 ED Decision to Admit Stat 06/17/21 08:00 Consult Cardiology Routine Procedures Performed Operation Date: 06/19/21 09:30 Actual Procedures p Cineradiography w/Routine Exam - Shamar Adams MD s Cath, Left with Cors and Vent - Shamar Adams MD Ordered Studies 06/16/21 18:44 CT angio chest PE protocol Stat 06/19/21 08:09 CL Cath Imgs for PACS use only Routine Hospital Course (1) Elevated troponin level: Possbile myocarditis This 45-year-old male presents with fever and fatigue of unknown etiology. 1. Fever and fatigue, unclear etiology. Laboratories are unremarkable except for lymphopenia The patient is SARS-CoV-2 PCR negative. The patient had a second dose of vaccination about 1 month ago. No exposure to COVID. CT of the chest unremarkable except for possible atelectasis. Possibility could be the Lyme disease or anaplasmosis as recently seeing ticks in his bed about 3 days ago, although his Lyme screen is negative, may take some time to show positive on the laboratories. Empirically started on Rocephin and doxycycline, fluids and follow the response and monitor in the hospital. Urine drug screen positive for ecstasy, likely from the use of Sudafed prior to coming to the hospital (for congestion) Patient afebrile in the hospital, will discharge on doxycycline with close follow-up with PCP. 2. NSTEMI, troponin of 3.6. EKG with ischemic changes on admission. Cardiology consulted and appreciate their inputs. Pt received aspirin and started on heparin on admission. Will Check for CK and CK-MB check a drug screen and ESR and CRP levels. Lipid profile in the a.m. Cardiology consulted. Echocardiogram obtained - EF 60-65%. There is a small sized posterior wall motion abnormality with hypokinesis of the segments. There is mild tricuspid regurg, there is no pericardial effusion. Given ischemic changes on ECG and posterior wall motion abnormality on resting echo - Plan for cardiac cath Pt s/p cardiac cath w/ Dr. Adams on 06/19/2021 - Cardiac catheterization demonstrates no obstructive coronary disease and preserved LV systolic function. Troponins may represent very mild myocarditis in association with acute febrile illness/inflammatory process. No signs of further cardiac deterioration by EKG and cardiac catheterization. Recommendations would continue aspirin and beta-roseann for 6 to 12 weeks. Follow-up cardiology 2 to 4 weeks DISPOSITION: Plan to DC home today and follow-up with PCP and cardiology. Full code Total Time Total Time Spent Total Time Spent (In Minutes): 35 Discharge Plan Discharge Items Patient Disposition: Home - Self-Care Reason For Visit: FEVER Discharge Diagnosis: Elevated troponin, possible myocarditis Fever Possible tickborne disease Activity: Per Instructions section Non-emergency contact: Primary Care Provider and Automation Technician Call non-emergency contact if: you have any medication questions and your symptoms worsen Follow-up/Referrals: Krystal Lee DO [Primary Care Provider] - (Date & Time 06/26/2021 12:00 PM Provider Krystal Lee DO Department [facility] ) Diet: Heart Healthy Addtl Attending Provider Instructions: Follow up with your primary care doctor, the appointment is scheduled for you for June 26. You will also need to follow-up with cardiology in 2 to 4 weeks, you will be contacted about the appointment. Take aspirin and metoprolol for 6 to 12 weeks according to unemployment claims adjudicator's recommendations. Take doxycycline for 1 week and follow-up with your family doctor. Pending Studies at Discharge: Yes Studies:: Final blood cultures Anaplasma DNA Stand-Alone Forms: Perpetuall, Smoking Cessation Medications and DC Order Prescriptions: New aspirin 81 mg Tablet,Delayed Release (Dr/Ec) 81 mg PO QAM Qty: 30 RF: 0 metoprolol tartrate 25 mg Tablet 12.5 mg PO BID 30 Days Qty: 30 RF: 0 doxycycline hyclate 100 mg capsule 100 mg PO BID 7 Days Qty: 14 RF: 0 Discharge Orders: Discharge Order (Routine); Ordered 06/19/21 Ordered By: Cedric Chang Admission Data Admit Date/Time: 06/16/21 20:16 Attending Provider: Cedric Chang Admit Provider: Pradeep Zapien Primary Care Provider: Krystal Lee Other Providers: Pradeep Zapien ; Jeet Frank
[2021-06-19 17:59] VITALS: PULSE 72
[2021-06-21 10:31] LABS: MDA negative; MDEA negative; MDMA (Ecstasy) Urine, Confirm negative
== END 2021-06-19 18:00 | disposition home or self-care (01) | DRG 282 ==
LOC: ED 17:19 → 2S 20:16